=== PATIENT | male | born 1960 | race Caucasian/White ===

== ENCOUNTER 2018-10-09 00:34 | Inpatient (IN) | payer OTHER ==
[2018-10-09 01:23] LABS: Hemoglobin 14.3 g/dL (14.0-18.0); Mean Corpuscular HGB CONC 33.7 g/dL (32.0-36.0); Mean Corpuscular Hemoglobin 29.3 pg (27.0-31.0); Mean Platelet Volume 7.7 fL (7.4-10.4); Platelet Count 258 thou/uL (130-400); RBC Distribution Width 12.9 % (11.5-14.5); Red Blood Cell (RBC) Count 4.88 mill/uL (4.70-6.10); White Blood Cell (WBC) Count 15.2 thou/uL (4.8-10.8)
[2018-10-09 01:51] LABS: ALT (SGPT) 39 U/L (8-55); AST (SGOT) 41 U/L (5-34); Albumin 3.4 g/dL (3.5-5.0); Alkaline Phosphatase 122 U/L (40-150); Anion Gap 17 mmol/L (10-20); BUN (Urea Nitrogen) 25 mg/dL (8.4-25.7); Bilirubin, Total 0.5 mg/dL (0.2-1.2); Calc. Creatinine Clearance 0 mL/min (70-130); Calcium 9.4 mg/dL (7.8-10.44); Carbon Dioxide 23 mmol/L (22-29); Chloride 97 mmol/L (98-107); Estimated GFR-MDRD 53; Globulin 2.5 g/dL (2.4-3.5); Glucose 409 mg/dL (70-105); Potassium 3.2 mmol/L (3.5-5.1); Protein, Total 5.9 g/dL (6.0-8.3); Sodium 134 mmol/L (136-145)
[2018-10-09] MEDS ORDERED: Piperacillin/Tazobactam 4.5 GM in Sodium Chloride 0.9% 100 ML IVPB SCH (02:00)
[2018-10-09 02:10] LABS: Band 28 % (5-11); Lymphocytes 6 % (21-51); MDiff Complete? YES; Monocytes 3 % (0-10); Neutrophil 62 % (42-75)
[2018-10-09] MEDS ORDERED: Piperacillin/Tazobactam 2.25 GM VIAL ONE (02:30)
[2018-10-09] MEDS ORDERED: Piperacillin/Tazobactam 4.5 GM VIAL ONE (02:30)
[2018-10-09] MEDS ORDERED: Acetaminophen 325 MG TAB PO PRN (02:36)
[2018-10-09] MEDS ORDERED: Acetaminophen 650 MG Suppository PR PRN (02:36)
[2018-10-09] MEDS ORDERED: Ondansetron PF 4 MG/2 ML Vial IVP PRN (02:36)
[2018-10-09] MEDS ORDERED: Potassium Chloride 40 MEQ in Sodium Chloride 0.9% 250 ML 250 ML IVPB SCH (03:00)
[2018-10-09] MEDS ORDERED: HumaLOG 300 UNITS/3 ML VIAL SC PRN (03:01)
[2018-10-09] MEDS ORDERED: Dextrose 50% Abboject 50 ML SYRINGE SLOW IVP PRN (03:01)
[2018-10-09] MEDS ORDERED: Dextrose 5% in Water 1,000 ML IV PRN (03:01)
[2018-10-09 05:31] LABS: Lactic Acid 5.8 mmol/L (0.5-2.2)
[2018-10-09 05:33] LABS: Anion Gap 17 mmol/L (10-20); BUN (Urea Nitrogen) 24 mg/dL (8.4-25.7); Calc. Creatinine Clearance 98 mL/min (70-130); Calcium 9.5 mg/dL (7.8-10.44); Carbon Dioxide 22 mmol/L (22-29); Chloride 96 mmol/L (98-107); Estimated GFR-MDRD 53; Glucose 332 mg/dL (70-105); Potassium 3.1 mmol/L (3.5-5.1); Sodium 132 mmol/L (136-145)
[2018-10-09 05:48] LABS: Band 44 % (5-11); Lymphocytes 3 % (21-51); MDiff Complete? YES; Mean Corpuscular HGB CONC 30.4 g/dL (32.0-36.0); Mean Corpuscular Volume 88.9 fL (78.0-98.0); Metamyelocyte 1 % (0-0); Monocytes 5 % (0-10); Neutrophil 47 % (42-75); Platelet Count 287 thou/uL (130-400); RBC Distribution Width 13.1 % (11.5-14.5); Red Blood Cell (RBC) Count 4.82 mill/uL (4.70-6.10); White Blood Cell (WBC) Count 15.3 thou/uL (4.8-10.8)
[2018-10-09] MEDS ORDERED: Sodium Chloride 0.9% 1,000 ML IV SCH (06:00)
[2018-10-09] MEDS ORDERED: methylPREDNISolone Sod Succ/PF 125 MG/2 ML VIAL IVP SCH ×2 (06:45→12:00)
[2018-10-09 06:47] LABS: Actual Bicarbonate (HCO3a) 19.7 mEq/L (22-28); O2 Tension (PaO2) 88.1 mmHg (> 80.0); pH, Arterial 7.41 (7.35-7.45)
[2018-10-09 06:48] LABS: Calcium, Ionized 1.14 mmol/L (1.12-1.30); Carboxyhemoglobin (COHb) 0.8 gm% (0.0-3.0); Hemoglobin (Hb) 13.1 g/dL (14.0-18.0); Potassium - ABG Lab 3.63 mmol/L (3.70-5.30)
[2018-10-09 06:49] LABS: Puncture Site RRA
--- NOTE | 2018-10-09 07:03 | CT ---
CTA CHEST WITH 3D VOLUME RENDERING WITH CONTRAST: CLINICAL HISTORY: New onset pain and fever. FINDINGS: There is no large, central pulmonary embolus identified within the pulmonary tract or main pulmonary arteries. Segmental and subsegmental branches are limited in assessment by heterogeneity of contrast bolus within the branches at these levels. There is no consolidation, effusion, or discrete pneumot horax. Thoracic aorta is nonaneurysmal. Coronary artery calcium is seen. Eventration of the ventra l abdominal wall is visualized at the upper abdomen. Diffuse osseous degenerative change is present. There is elevation of the right hemidiaphragm. IMPRESSION: No large, acute, central pulmonary embolus. POS: KRANTHIK
--- NOTE | 2018-10-09 07:52 | RAD ---
XR Knee Rt 2 View HISTORY: Right knee pain FINDINGS: No fracture or dislocation is identified. There are postoperative changes of total knee arthroplasty in good position and alignment. No periprosthetic lucency is seen to suggest loosening. A joint effusion is present.
--- NOTE | 2018-10-09 08:27 | HP ---
PRIMARY CARE PHYSICIAN: Not reported. CODE STATUS: Full code. TIME OF EVALUATION: 2:30 a.m. CHIEF COMPLAINT: Right knee pain. HISTORY OF PRESENT ILLNESS: This is a 58-year-old male patient, with past medical history of bilateral knee replacement, came to the hospital after having fever, pain on the right knee with significant swelling in the right lower extremity, with no clear triggers, no falls, not even related to any swelling, no alleviating factors. The symptoms are reported as severe. The patient is unable to bear weight due to pain. for consultation for medical management. REVIEW OF SYSTEMS: CONSTITUTIONAL: The patient has fever, chills, generalized weakness. RESPIRATORY: The patient is hypoxic with tachypnea. Scant sputum production. CARDIOVASCULAR: No chest pain or palpitations. GASTROINTESTINAL: No nausea, no vomiting, diarrhea, or abdominal pain. AUTO PORTER: No dizziness, headache, or feeling lightheaded. GENITOURINARY: No burning on urination. EXTREMITIES: The patient has bilateral knee replaced and the right knee is significantly swollen and difficulty bearing weight on bilaterally knees. All other systems were reviewed and negative except for the findings mentioned above. PAST MEDICAL HISTORY: The patient has a history of COPD, hypertension, and high cholesterol. FAMILY HISTORY: Reviewed and non contributory to current presentation PAST SURGICAL HISTORY: in the lower back, bilateral knee replacement. PAST PSYCHIATRIC HISTORY: No psych history. SOCIAL HISTORY: No alcohol. No drugs. The patient chews tobacco on a daily basis. KNOWN ALLERGIES: No known drug allergies. REPORTED MEDICATIONS: 1. Lyrica. 2. . 3. Fenofibrate. 4. Metformin. 5. . PHYSICAL EXAMINATION: VITAL SIGNS: On presentation, blood pressure 164/103 with heart rate 92, respiratory rate was 26, temperature 97.4. Pain was 6/10. Oxygen saturation was 97. GENERAL APPEARANCE: The patient is alert, oriented, in mild respiratory distress. HEENT: Eyes, normal conjunctivae. Moist oral mucosa. Anicteric. No JVD. RESPIRATORY: Bilateral air entry. No rales. The patient has bilateral wheezing. Symmetric expansion. CARDIOVASCULAR: Normal rate and regular rhythm. No murmurs. No gallop. No edema. ABDOMEN: Soft. Normal bowel sounds. MUSCULOSKELETAL: Baseline range of motion and strength except for bilateral knees, which he is unable to bear weight and the right knee is significantly swollen and tender. Peripheral pulses are present. Capillary refill seems to be intact. The patient has left second toe swollen, tender, red. NEUROLOGICAL: No evidence of any new focal weakness. Cranial nerves seems to be intact. PSYCHIATRIC: The patient is in good mood. No anxiety. Optimal judgment. IMAGING STUDIES: EKG was reviewed. The patient has sinus tachycardia with some PVCs, ventricular rate 101, W[place] , QRS 86, QT corrected 433. LABORATORY DATA: Reviewed. The patient has white count 15.2, hemoglobin 14.3, MCV 87, platelet count 258, bands 28. Chemistry; sodium 134, potassium 3.2, chloride 97, creatinine 1.37. We do not have any previous records to compare. Calcium 9.4. Total bilirubin 0.5. LFTs were negative. Toxicology, beta-hydroxybutyrate 0.59. D-dimer was positive, more than 500. Urine was negative. Sedimentation rate 55 , glucose . X-ray of the right knee was done. The patient has no acute osseus abnormalities or joint effusion. ASSESSMENT AND PLAN: The patient will be placed in the hospital with following medical problems; 1. Possible right knee septic joint, the patient has fever, right knee swelling. There is no effusion seen on the x-ray. Orthopedics have been consulted, they are admitting the patient. They will be treating this problem. From our part, we recommend broad-spectrum antibiotics, and to adjust it as per sensitivity and the cultures. 2. Sepsis. The patient has white count. The patient has fever. The patient has tachypnea, likely source is the right knee septic effusion; however, the patient has left second toe diabetic-like infection that needs to be addressed and could be the possible source for the sepsis too. 3. The patient presented with acute hypoxia. No respiratory distress, the patient has significant swelling of the right lower extremity. D-dimer is elevated. PE remains as a possibility. We will rule it out since it could be life- threatening. We have ordered a CT angio. We will follow recommendations. We will treat accordingly. 4. Possible chronic obstructive pulmonary disease exacerbation. The patient also has history of chronic obstructive pulmonary disease to be the reason why he had presented with some respiratory distress. We will place the patient on DuoNebs , he is already on antibiotics, and we will give if the patient does not have we do not find any other reason why the patient is in respiratory distress other than the chronic obstructive pulmonary disease. 5. Lactic acidosis. Lactate 4.2. This could be secondary to sepsis. We will treat underlying condition. 6. Uncontrolled diabetes. The patient has blood sugar 409 with normal anion gap and normal CO2. No beta-hydroxybutyrate. We will place the patient on sliding scale. This could be just worsened by sepsis. 7. Hyponatremia, sodium 134. This could be hypertonic hyponatremia secondary to hyperglycemia. We will treat underlying condition. 8. Hypokalemia. We will replace electrolytes as needed. Job ID: [id number] MTDD
[2018-10-09] MEDS: HYDROcodone/Acetaminophen 7.5/325 mg Tablet PO PRN ×2 (08:55→20:47)
[2018-10-09] MEDS: Piperacillin/Tazobactam 4.5 GM in Sodium Chloride 0.9% 100 ML IVPB SCH ×2 (08:55→17:47)
[2018-10-09] MEDS ORDERED: ISOVUE-370 76%-LOCM 1 ML ONE (09:01)
[2018-10-09 09:12] LABS: BF Color Gray; Body Fluid Source Synovial Fluid; Clarity Cloudy/Turbid (Clear); RBC Background Count 0.004; RBC Count-Automated 548000 /cumm; Tube # EDTA; WBC/NonHematic-Auto 388000 /cumm
--- NOTE | 2018-10-09 09:13 | RAD ---
RADIOGRAPH LEFT FOOT THREE VIEWS: Date: 10-09-18 History: 58-year-old male with infected left second toe. Evaluate for osteomyelitis. Comparison: None. FINDINGS: There is soft tissue swelling of the distal portion of the second toe. There is an approximately 3 x 7 mm osseous defect at the second distal tuft. The rest of the foot is intact. There is an os navicul are. IMPRESSION: Evidence for osteomyelitis of the distal tuft of the left second toe. POS: Delta
[2018-10-09] MEDS: Enoxaparin Sodium 40 MG/0.4 ML SYRINGE SC SCH (09:51)
[2018-10-09 11:20] LABS: BF Segmented Neutrophils 26 %; Cell Count Non Hematic 61 %; Lymphocytes 13 %
[2018-10-09] MEDS ORDERED: PROPOFOL 200 MG/20 ML VIAL ONE (11:41)
[2018-10-09] MEDS ORDERED: Lidocaine 1% PF 5 ML VIAL ONE (11:41)
[2018-10-09] MEDS ORDERED: Rocuronium Bromide 10 MG/ML (10ML VIAL) ONE (11:41)
[2018-10-09] MEDS ORDERED: Succinylcholine Chloride 20 MG/ML 10 ml SYRINGE FS ONE (11:41)
[2018-10-09] MEDS ORDERED: Ondansetron PF 4 MG/2 ML Vial ONE (11:41)
[2018-10-09] MEDS ORDERED: PHENYLEPHRINE-NS 100 MCG/ML 10 ML SYRINGE ONE (11:41)
[2018-10-09] MEDS ORDERED: Insulin Regular 300 UNITS/3 ML VIAL ONE (12:09)
--- NOTE | 2018-10-09 12:14 | HP ---
CHIEF COMPLAINT: Right knee pain. HISTORY OF PRESENT ILLNESS: Mr. Saez is a 58-year-old male, who presented to the emergency department with sepsis. He has been having 3 days of fevers and chills and feeling malaise. He has not been able to eat or drink. He has had increasing right knee pain over the last 3-5 days. He developed a large effusion of the right knee. He has developed inability to ambulate. Of note, he has had a chronic infection in his left 2nd toe. He reports over the last several weeks this has worsened as well. He has had a chronic ulcer. He has poorly controlled diabetes. The patient has had bilateral total knee arthroplasty approximately 4 years ago. Up until this week he has had no problems with his knees. No history of infection around the time of his knee replacement surgery. PAST MEDICAL HISTORY: Includes diabetes, obesity, hypertension, and hypercholesterolemia. PAST SURGICAL HISTORY: Bilateral total knee arthroplasties as well as lumbar back surgery. SOCIAL HISTORY: No alcohol or drug use. The patient does use tobacco daily. ALLERGIES: NO KNOWN DRUG ALLERGIES. REVIEW OF SYSTEMS: Positive for fevers and chills, generalized malaise and right knee pain. Otherwise, negative 10-point review of systems. IMAGING: X-rays of the right knee demonstrate a large effusion. Total knee arthroplasty is intact without loosening or complication. The patient's left foot x-rays demonstrate osteomyelitis of the distal phalanx of the 2nd toe. PHYSICAL EXAMINATION: VITAL SIGNS: Temperature is 99.7, pulse is 107, respiratory rate 26, oxygen saturation 99%, blood pressure is 128/76. GENERAL: He is sitting with head of bed elevated. No apparent distress. Breathing comfortably. ABDOMEN: Soft, nontender, nondistended. HEENT: Normocephalic, atraumatic. MUSCULOSKELETAL: The patient's right knee has a large effusion. He has a small arc of motion of 30 degrees. He has pain with this. He has increased warmth. Left knee has a well-healed wound. There is no effusion. The patient's left foot 2nd toe has an ulceration with an enlarged appearance of the 2nd toe consistent with osteomyelitis. He has a small ulceration of the 1st toe on the plantar surface as well. IMPRESSION: A 58-year-old diabetic male with left 2nd toe infection including osteomyelitis, now with a septic right total knee arthroplasty, likely from hematogenous seeding. PLAN: At this point, the patient will need to go to the operating room. He will need irrigation and debridement of his right total knee arthroplasty. He will need polyethylene exchange. He will need amputation of the distal aspect of the 2nd toe as well. He will need long-term antibiotics. He will likely need at least 6 weeks. He will continue critical care for now. He will continue aggressive management of his poorly controlled diabetes. Job ID: [id number]
[2018-10-09] MEDS ORDERED: Fentanyl 100 MCG/2 ML VIAL ONE ×3 (12:36→15:56)
[2018-10-09] MEDS ORDERED: Promethazine HCl 25 MG/ML VIAL IM PRN (13:46)
[2018-10-09] MEDS ORDERED: Promethazine HCl 25 MG/ML VIAL SLOW IVP PRN (13:46)
[2018-10-09] MEDS ORDERED: Ondansetron HCl/PF 4 MG/2 ML Vial IVP PRN (13:46)
[2018-10-09] MEDS ORDERED: Morphine 10 MG/ML VIAL ONE (13:55)
[2018-10-09] MEDS ORDERED: Vancomycin HCl 750 MG in Sodium Chloride 0.9% 250 ML 250 ML IVPB SCH (16:00)
[2018-10-09] MEDS: Sodium Chloride 0.9% 1,000 ML IV SCH ×2 (16:08→16:29)
[2018-10-09] MEDS: Vancomycin HCl 1.75 GM in Sodium Chloride 0.9% 500 ML IVPB SCH (16:48)
[2018-10-09] MEDS ORDERED: Insulin Glargine 10 UNITS in Pre-Filled Syringe SC SCH (17:15)
[2018-10-09] MEDS ORDERED: Budesonide 0.5 MG/2 ML NEB INH SCH (18:30)
[2018-10-09] MEDS ORDERED: hydrALAZINE 20 MG/ML VIAL SLOW IVP PRN (18:42)
[2018-10-09] MEDS ORDERED: Potassium Chloride 20 MEQ TAB PO SCH (18:45)
--- NOTE | 2018-10-09 19:04 | PRG ---
DATE OF SERVICE: 10/09/2018 SUBJECTIVE: The patient denies any new complaints at this time. Shortness of breath has significantly improved. He has some pain in the right knee postop. No fever or chills reported. He denies any chest pain or shortness of breath. OBJECTIVE: VITAL SIGNS: The patient is afebrile, pulse rate of 92, blood pressure 145/85 with respirations of 20, O2 saturation 96% on 2 L nasal cannula. GENERAL: A 58-year-old male, in no apparent distress. HEENT: Head, atraumatic and normocephalic. Sclerae anicteric. NECK: Supple. No JVD. LUNGS: Clear to auscultation bilaterally. No wheezing, rales, or rhonchi. HEART: S1 and S2 present. Regular rate and rhythm. No rubs or gallops. ABDOMEN: Soft. Bowel sounds present. Obese. EXTREMITIES: No edema or calf tenderness. Dressing over the left foot and the right knee noted. CARDIOVASCULAR STUDIES: Telemetry monitoring by my review showed sinus rhythm. LABORATORY FINDINGS: WBC 15.3, hemoglobin 13, hematocrit 42.8, and platelets 287. ABGs this morning showed pH 7.41 with pCO2 of 32, pO2 of 88.1 with O2 saturation of 97%. Lactic acid 5.8. Sodium 132, potassium 3.1, chloride 98, and creatinine 1.36. Synovial fluid showed wbc of 388,000 with 26% neutrophil with bacteria, ketones 0.59. Knee aspirate preliminary culture showed many gram-positive cocci in pairs and chains. IMAGING DATA: X-ray of the right knee by my review showed postoperative changes without any fracture. X-ray of the left foot showed osteomyelitis of the distal tuft of the left 2nd toe. CT angiogram of the chest was negative for pulmonary embolism. IMPRESSION: 1. Sepsis with acute organ dysfunction secondary to septic arthritis involving the right knee along with left 2nd toe osteomyelitis. 2. Uncontrolled diabetes mellitus, type 2. 3. Acute hypoxic respiratory failure. 4. Obstructive sleep apnea, on CPAP. 5. Lactic acidosis secondary to sepsis. 6. Hyponatremia. 7. Hypokalemia. 8. Chronic kidney disease, stage 3. 9. Obesity with a BMI of 36.8. 10. Depression, mild, stable. 11. Hypertension. 12. Diabetic neuropathy. 13. Chronic pain syndrome. PLAN: The patient underwent left 2nd toe amputation along with surgery for right knee. Operative report is pending at this time. We will start him on long-acting insulin. Continue vancomycin and Zosyn for now. Change insulin to moderate scale. We will discontinue IV Solu-Medrol. Pain control. We will restart selected home medications. Recheck labs in a.m. IV normal saline at 125 mL an hour. Replace potassium. Plan of care was discussed with the patient and his family in detail. They stated understanding. Job ID: [id number]
[2018-10-09] MEDS: HumaLOG 300 UNITS/3 ML VIAL SC PRN (20:32)
[2018-10-10] MEDS ORDERED: rOPINIRole HCl 0.25 MG TAB PO SCH (01:00)
[2018-10-10] MEDS: Piperacillin/Tazobactam 4.5 GM in Sodium Chloride 0.9% 100 ML IVPB SCH ×2 (01:22→09:44)
[2018-10-10] MEDS: HumaLOG 300 UNITS/3 ML VIAL SC PRN ×5 (01:33→20:53)
--- NOTE | 2018-10-10 01:53 | CON ---
DATE OF CONSULTATION: 10/09/2018 HISTORY OF PRESENT ILLNESS: Dominic Saez is a 58-year-old male who was found to have an infected right knee. He is going to the operating room for washout. I was consulted because of his presence in intermediate care unit. He is examined in the recovery room. He is still somnolent, but easily arousable. PAST MEDICAL HISTORY: Remarkable for, 1. Diabetes. 2. Hypertension. 3. Lipid disorder. 4. History of bilateral total knees. 5. History of lumbar spine surgery. SOCIAL HISTORY: He is a smoker. Nondrinker. ALLERGIES: HE HAS NO DRUG ALLERGIES. FAMILY HISTORY: Negative for lung disease in early age. REVIEW OF SYSTEMS: A 10-point review of systems otherwise negative with the exception of discomfort in his knee prior to the surgery. PHYSICAL EXAMINATION: GENERAL: In the recovery room, he is in no distress. VITAL SIGNS: Blood pressure 140/80, heart rate is 90, respiratory rate is 18. He is in no distress. Oximetry is 96%. HEENT: Pupils are equal. Sclerae are anicteric. NECK: Supple. No lymphadenopathy. LUNGS: Clear. HEART: Regular rhythm, S1 and S2 normal. ABDOMEN: Soft and nontender. EXTREMITIES: With a bandage on his right knee and over his left foot. LABORATORY DATA: White count 15.3, hemoglobin 13.0, platelets 287. Sodium 132, potassium 3.1, chloride 96, bicarb 22, BUN 24, creatinine 1.36. Gram stain of knee aspirate showing gram-positive cocci in pairs and chains. IMPRESSION: 1. Septic knee, status post operative washout. 2. History of sleep apnea he says, I have asked the nurse to try to contact family if they could bring up his CPAP for sleep in [facility]. 3. History of diabetes. 4. Acute on chronic kidney disease. We will be happy to follow the other physicians following him. TIME SPENT: This is a 50-minute consult, 50% of the time was spent on the unit coordinating care. Job ID: [id number] MTDD
[2018-10-10] MEDS: Sodium Chloride 0.9% 1,000 ML IV SCH ×3 (02:37→21:04)
[2018-10-10] MEDS ORDERED: Vancomycin HCl 1.75 GM in Sodium Chloride 0.9% 500 ML IVPB SCH (04:00)
[2018-10-10] MEDS: Vancomycin HCl 1.75 GM in Sodium Chloride 0.9% 500 ML IVPB SCH (04:35)
[2018-10-10 05:32] LABS: ALT (SGPT) 26 U/L (8-55); AST (SGOT) 24 U/L (5-34); Alkaline Phosphatase 101 U/L (40-150); Anion Gap 17 mmol/L (10-20); BUN (Urea Nitrogen) 26 mg/dL (8.4-25.7); Bilirubin, Total 0.2 mg/dL (0.2-1.2); Calc. Creatinine Clearance 115 mL/min (70-130); Calcium 8.8 mg/dL (7.8-10.44); Carbon Dioxide 18 mmol/L (22-29); Chloride 98 mmol/L (98-107); Estimated GFR-MDRD 63; Globulin 3.3 g/dL (2.4-3.5); Glucose 449 mg/dL (70-105); Magnesium 2.1 mg/dL (1.6-2.6); Potassium 4.2 mmol/L (3.5-5.1); Protein, Total 6.3 g/dL (6.0-8.3); Sodium 129 mmol/L (136-145)
[2018-10-10 06:47] LABS: Hemoglobin 11.2 g/dL (14.0-18.0); Mean Corpuscular HGB CONC 30.5 g/dL (32.0-36.0); Mean Corpuscular Hemoglobin 27.3 pg (27.0-31.0); Mean Corpuscular Volume 89.5 fL (78.0-98.0); Mean Platelet Volume 7.9 fL (7.4-10.4); Platelet Count 302 thou/uL (130-400); RBC Distribution Width 13.5 % (11.5-14.5); White Blood Cell (WBC) Count 19.9 thou/uL (4.8-10.8)
[2018-10-10 06:54] LABS: Band 18 % (5-11); Lymphocytes 7 % (21-51); MDiff Complete? YES; Monocytes 5 % (0-10); Neutrophil 70 % (42-75)
[2018-10-10] MEDS ORDERED: Insulin Glargine 10 UNITS in Pre-Filled Syringe SC SCH (09:00)
[2018-10-10] MEDS: DULoxetine 60 MG CAP PO SCH (09:38)
[2018-10-10] MEDS: Saccharomyces boulardii 250 MG CAP PO SCH (09:42)
[2018-10-10] MEDS: Enoxaparin Sodium 40 MG/0.4 ML SYRINGE SC SCH (09:42)
[2018-10-10] MEDS: Insulin Glargine 20 UNITS in Pre-Filled Syringe 1 EACH SC SCH ×2 (09:42→20:45)
[2018-10-10] MEDS: Fentanyl 100 MCG/2 ML VIAL SLOW IVP PRN ×5 (09:45→22:05)
[2018-10-10] MEDS: HYDROcodone/Acetaminophen 7.5/325 mg Tablet PO PRN (13:46)
[2018-10-10] MEDS: CEFAZOLIN 2 GM in Premix Bag 1 BAG IVPB SCH ×2 (13:47→21:03)
--- NOTE | 2018-10-10 15:20 | PRG ---
DATE OF SERVICE: 10/10/2018 SUBJECTIVE: Mr. Saez says he feels better than he felt yesterday. He slept on the hospital BiPAP since he did not have anybody to bring him his BiPAP or CPAP. OBJECTIVE: VITAL SIGNS: Heart rate is 85, blood pressure 141/85, respiratory rate is 22. LUNGS: Clear. HEART: Regular rhythm. ABDOMEN: Soft. EXTREMITIES: The left foot and right knee are bandaged. LABORATORY DATA: White count 19.9, hemoglobin 11.2, platelets 302,000. Sodium 129, potassium 4.2, chloride 98, bicarb 18, BUN 26, creatinine 1.19, glucose 449. IMPRESSION: 1. Septic knee. 2. Peripheral vascular disease. 3. Diabetes, poorly controlled. 4. Obesity. Overall, he appears to clinically be improving. He is stable to move out of the intermediate care unit in my opinion. Job ID: [id number]
[2018-10-10 16:00] LABS: Vancomycin, Trough 13.5 ug/mL
--- NOTE | 2018-10-10 20:52 | OP ---
DATE OF PROCEDURE: 10/09/2018 PREOPERATIVE DIAGNOSES: 1. Infected right total knee arthroplasty. 2. Diabetic infection, left second toe. POSTOPERATIVE DIAGNOSES: 1. Infected right total knee arthroplasty. 2. Diabetic infection, left second toe. PROCEDURES PERFORMED: 1. Revision of right total knee arthroplasty with poly exchange. 2. Irrigation and debridement of right total knee arthroplasty. 3. Amputation of left second toe at metatarsophalangeal joint. ANESTHESIA: General. HOGSHEAD FILLER: Coretta. TOURNIQUET TIME: 57 minutes at 300 mmHg on the right leg. SPECIMEN EXPLANTED: Poly discarded, amputated left toe also discarded. DRAINS: Hemovac x1. IMPLANTS: The DePuy rotating platform polyethylene 5 x 12.5 mm. OUTCOME: Satisfactory irrigation and debridement of infected total knee. INDICATIONS FOR PROCEDURE: The patient is a 58-year-old gentleman with diabetes and is now a few years out from a total knee arthroplasty. He presents with a 5-day history of increasing left knee pain and decreasing motion in this left knee as well as an infected left second toe with necrotic skin to the level of the middle phalanx. After aspiration of the knee which showed purulent material, the patient now scheduled for irrigation and debridement of this right total knee, as well as polyethylene exchange, as well as amputation of the left second toe. Informed consent has been obtained, I believe all questions answered. DESCRIPTION OF PROCEDURE: The patient was brought to the operating room and a time-out performed followed by induction of general anesthesia. Next, the patient was placed supine on the OR table and a sterile prep and drape was performed of the right lower extremity. The limb was elevated and then tourniquet inflated to 300 mmHg. Following the scar from the previous total knee arthroplasty, the anterior skin was incised, and dissection was carried down sharply to the underlying quadriceps mechanism. Next, a medial parapatellar arthrotomy was performed extending up into the quadriceps tendon and distally along the medial border of the patellar tendon. At this point, purulent material was found within the knee. This was evacuated from the knee. Next, the patella was inverted and then a synovectomy was performed from the suprapatellar pouch, medial and lateral gutters as well as around the patella. Once all visible synovial tissue had been sharply excised, the polyethylene liner was removed. Upon removal of this, the knee was irrigated with 5 L of normal saline with antibiotic irrigant added. This included the posterior aspect of the knee, which was curetted to remove any loose debris. Once completed, no further purulent material was encountered. A new polyethylene insert was then placed. At this point, some vancomycin powder, 1 g was placed within the knee along with some saline to make it soluble. At the completion of this, a Hemovac drain was placed in the knee and then the knee was closed in layers with #2 Vicryl for the quadriceps mechanism, 2-0 Vicryl subcutaneously and donya for the skin. A Xeroform gauze and Rome wrap dressing were then applied to the knee. The tourniquet was let down at the completion of dressing. Next, a sterile prep and drape was performed in the left lower extremity. The second toe was inspected and found to have infection extending all the way to the mid phalanx level. As such, a fishmouth type incision was made distal to the metatarsophalangeal joint after skin was sharply incised, dissection was carried down with electrocautery. There was found to be minimal bleeding from this surgery, consistent with his diabetic vascular disease. The toe was then amputated at the metatarsophalangeal joint. Electrocautery was used to gain hemostasis and then this wound was loosely reapproximated with combination of 2-0 Vicryl and nylon. A Xeroform gauze, bulky gauze, and Rome wrap dressing were then applied to the foot. At the completion of this, the patient was then transferred to recovery room in stable condition. There were no complications. He tolerated the procedure well. Job ID: [id number]
[2018-10-10] MEDS: Rifampin 300 MG CAP PO SCH (21:02)
--- NOTE | 2018-10-10 22:27 | PDOC.PN ---
- Subjective Encounter Start Date: 10/10/18 Encounter Start Time: 14:30 Patient seen and examined for Sepsis. Feels better. Was on CPAP last night. Pain controlled. No new complaints. No overnight events - Objective Resuscitation Status - Order Detail: 10/09/18 02:36 Resuscitation Status Routine Resuscitation Status: FULL: Full Resuscitation MAR Reviewed: Yes Vital Signs & Weight: Vital Signs (12 hours) Temp Pulse Resp Pulse Ox 10/10/18 22:12 86 14 98 10/10/18 20:00 100 10/10/18 19:53 98.8 F 10/10/18 18:34 86 13 10/10/18 15:22 98.2 F 10/10/18 15:20 85 19 10/10/18 11:24 97.0 F L 10/10/18 10:54 82 18 98 Weight Admit Weight 264 lb 3.2 oz Weight 270 lb 1.6 oz Most Recent Monitor Data Heart Rate from ECG 88 NIBP 130/70 NIBP BP-Mean 90 Respiration from ECG 21 SpO2 97 I&O: 10/09/18 10/10/18 10/11/18 06:59 06:59 06:59 Intake Total 6660 3350 Output Total 3650 1200 Balance 3010 2150 Result Diagrams: 10/10/18 04:29 10/10/18 04:29 Additional Labs: Accuchecks 10/10/18 10/10/18 10/10/18 20:52 17:17 10:40 POC Glucose 311 H 341 H 412 H 10/10/18 10/09/18 06:00 23:31 POC Glucose 422 H 442 H EKG Reviewed by me: Yes (Tele SR) Phys Exam - Physical Examination Constitutional: NAD Respiratory: no wheezing, no rales, no rhonchi Symmetrical Cardiovascular: RRR, no rub no heaves/pulsations Gastrointestinal: soft, non-tender, no distention, positive bowel sounds Musculoskeletal: no edema Neurological: non-focal, normal sensation, moves all 4 limbs Psychiatric: normal affect, A&O x 3 Dx/Plan - Plan DVT proph w/SCDs IMPRESSION: 1. Sepsis with acute organ dysfunction secondary to Rt knee septic arthritis/ left 2nd toe osteomyelitis. 2. Uncontrolled diabetes mellitus, type 2. A1c 13 3. Acute hypoxic respiratory failure. 4. Obstructive sleep apnea, on CPAP. 5. Lactic acidosis secondary to sepsis. 6. Hyponatremia. 7. Hypokalemia. 8. Chronic kidney disease, stage 3. 9. Obesity with a BMI of 36.8. 10. Depression, mild, stable. 11. Hypertension. 12. Diabetic neuropathy. 13. Chronic pain syndrome. PLAN: Cont Ancef/Rifampin Increase Lantus to 20 units BID Change sliding scale to aggressive Insulin self adm teaching AM labs Repeat Lactic acid in AM Cont CPAP HS Cont other meds as below Review of Systems - Review of Systems Respiratory: negative: Cough, Dry, Shortness of Breath, Hemoptysis, SOB with Excertion, Pleuritic Pain, Sputum, Wheezing Cardiovascular: negative: chest pain, palpitations, orthopnea, paroxysmal nocturnal dyspnea, edema, light headedness, other Gastrointestinal: negative: Nausea, Vomiting, Abdominal Pain, Diarrhea, Constipation, Melena, Hematochezia, Other - Medications/Allergies Allergies/Adverse Reactions: Allergies Allergy/AdvReac Type Severity Reaction Status Date / Time No Known Allergies Allergy Verified 10/09/18 03:51 Medications: Current Medications Acetaminophen (Tylenol) 650 mg PO Q4H PRN PRN Reason: Headache/Fever/Mild Pain (1-3) Last Admin: 10/10/18 21:18 Dose: 650 mg Acetaminophen (Tylenol) 650 mg [place] Q4H PRN PRN Reason: Headache/Fever/Mild Pain (1-3) Hydrocodone Bitart/Acetaminophen ([place] 7.5/325) 1 tab PO Q4H PRN PRN Reason: Mild Pain (1-3) Last Admin: 10/10/18 13:46 Dose: 1 tab Albuterol/Ipratropium (Duoneb) 3 ml NEB [id number] Last Admin: 10/10/18 22:12 Dose: 3 ml Albuterol/Ipratropium (Duoneb) 3 ml NEB Q2H PRN PRN Reason: SOB &/or Wheezing Clonidine (Catapres) 0.1 mg PO Q4H PRN PRN Reason: SBP Greater Than 180 Dextrose/Water (Dextrose 50%) 25 gm SLOW IVP PRN PRN PRN Reason: Hypoglycemia Duloxetine HCl (Cymbalta) 60 mg PO DAILY [facility] Last Admin: 10/10/18 09:38 Dose: 60 mg Enoxaparin Sodium (Lovenox) 40 mg SC 0900 [facility] Last Admin: 10/10/18 09:42 Dose: 40 mg Fentanyl (Sublimaze) 50 mcg SLOW IVP Q2H PRN PRN Reason: Pain Last Admin: 10/10/18 22:05 Dose: 50 mcg Glucagon (Glucagon) 1 mg IM PRN PRN PRN Reason: Hypoglycemia Hydralazine HCl (Apresoline) 10 mg SLOW IVP Q4H PRN PRN Reason: SBP Greater Than 180 Dextrose/Water (D5w) 1,000 mls @ 0 mls/hr IV .Q0M PRN PRN Reason: Hypoglycemia Sodium Chloride (Normal Saline 0.9%) 1,000 mls @ 125 mls/hr IV .Q8H [facility] Last Admin: 10/10/18 21:04 Dose: 1,000 mls Insulin Glargine 20 units/ (Miscellaneous Medication) 0.2 mls @ 0 mls/hr SC QAM [facility] Last Admin: 10/10/18 09:42 Dose: 0.2 mls Cefazolin Sodium/Dextrose 2 gm (/ Device) 50 mls @ 100 mls/hr IVPB Q8HR [facility] Last Admin: 10/10/18 21:03 Dose: 50 mls Insulin Glargine 20 units/ (Miscellaneous Medication) 0.2 mls @ 0 mls/hr SC HS [facility] Last Admin: 10/10/18 20:45 Dose: 0.2 mls Insulin Human Lispro (Humalog) 0 units SC .BEDTIME SLIDING SC PRN PRN Reason: Bedtime Correctional Scale Last Admin: 10/10/18 20:53 Dose: 4 unit Insulin Human Lispro (Humalog) 0 units SC .AGGRESSIVE SLIDING PRN PRN Reason: Aggressive Correctional Scale Last Admin: 10/10/18 17:30 Dose: 11 unit Miscellaneous Medication (Pharmacy To Dose) 1 each IVPB PRN PRN PRN Reason: SEPTIC ARTHRITIS Ondansetron HCl (Zofran Odt) 4 mg PO Q6H PRN PRN Reason: Nausea/Vomiting Ondansetron HCl (Zofran) 4 mg IVP Q6H PRN PRN Reason: Nausea/Vomiting Rifampin (Rifadin) 300 mg PO 1000,2200 [facility] Last Admin: 10/10/18 21:02 Dose: 300 mg Saccharomyces Boulardii (Florastor) 250 mg PO DAILY [facility] Last Admin: 10/10/18 09:42 Dose: 250 mg Sodium Chloride (Flush - Normal Saline) 10 ml IVF Q12HR [facility] Last Admin: 10/10/18 20:45 Dose: 10 ml Sodium Chloride (Flush - Normal Saline) 10 ml IVF PRN PRN PRN Reason: Saline Flush
[2018-10-10] MEDS ORDERED: Polyethylene Glycol 3350 17 GM Packet PO PRN (22:29)
--- NOTE | 2018-10-10 23:43 | CON ---
DATE OF CONSULTATION: 10/10/2018 REASON FOR CONSULTATION: Right TKR infection. HISTORY OF PRESENT ILLNESS: A 58-year-old with history of COPD, hypertension, hyperlipidemia, and bilateral knee replacement, developed chronic ulceration in left second toe and developed swelling of the right knee. Group B strep was identified in the right knee aspirate and the patient had a surgical intervention by Dr. Delaney. I do not have yet the operative report, so I do not know if the implant was removed or if was managed conservatively. The patient also had the second toe left foot amputated. Currently, he is awake, a little bit flushed, but he is oriented and follows commands. No visual symptoms, sore throat, odynophagia, dysphagia, or dyspnea. No chest pain. No cough or sputum production. No back pain. No abdominal pain or diarrhea. He is voiding in the urinal. 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 Chews tobacco. No smoking. ALLERGIES: NONE. FAMILY HISTORY: Noncontributory. CURRENT MEDICATIONS: 1. Tylenol. 2. [place]. 3. DuoNeb. 4. Cefazolin. 5. Clonidine. 6. Lovenox. 7. Glucagon. 8. Insulin. 9. Ondansetron. 10. Rifampin. PHYSICAL EXAMINATION: VITAL SIGNS: Temperature max 99.7, blood pressure is 130/70. SKIN: Shows the area of amputation of the second toe left foot, this area was sutured primarily. There is a little area of callus formation in the bottom of the first toe with hemorrhagic ulceration at the tip measuring about half a centimeter. The right knee is dressed and the dressing was not removed. He has a peripheral IV access and is urinating in the urinal. HEENT: Ocular movements conjugate. Sclerae white. Pupils are equal. Oral cavity with still quite a few teeth missing. Remainder ones with some decay and gum disease. NECK: Supple. No jugular venous distention or carotid bruits. LUNGS: Symmetric, clear breath sounds. HEART: S1 and S2, regular rate. ABDOMEN: Soft. Not distended or tender. No ascites. No bladder distention. EXTREMITIES: No other joint inflammatory activity noted outside the area of involvement. He is able to move extremities with limitations imposed by the right knee inflammatory process and procedure. Plantar responses are flexor. NEURO: He is awake, oriented, follows commands, pleasant. LABORATORY DATA: White cell count is up from 15,000 to 19,000, hemoglobin 11, platelets 302, 18% bands, which is down from admission. PH 7.41, pCO2 32, pO2 of 88. Sodium 129, creatinine 1.18. Liver profile normal. Albumin 3.0. Synovial fluid with 388,000 wbc's and predominance of neutrophils. Cultures from the synovial fluid with group B Streptococcus. Two sets of blood culture no growth thus far. Foot x-ray, osteomyelitis of distal tuft, left second toe and knee x-ray, no fracture dislocation. ASSESSMENT: 1. 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 2. Osteomyelitis, left second toe. 3. Infection of left knee arthroplasty site from group B strep. PLAN: We will wait for the final report. I do not know yet if the implant was removed or if he had a primary revision in one step with a functional spacer or he had a new joint in or just probably has a functional spacer in place. In that regard, we will switch him to cefazolin, rifampin, treat for 6 weeks and then further consolidation of therapy depending on the nature of the I and D that was done today. He will need a PICC line insertion. Disposition will depend on his insurance and other arrangements. Job ID: [id number]
[2018-10-11] MEDS: HYDROcodone/Acetaminophen 7.5/325 mg Tablet PO PRN ×3 (01:41→14:31)
[2018-10-11] MEDS: Fentanyl 100 MCG/2 ML VIAL SLOW IVP PRN ×5 (02:26→15:46)
[2018-10-11 05:00] LABS: Anion Gap 13 mmol/L (10-20); BUN (Urea Nitrogen) 21 mg/dL (8.4-25.7); Calc. Creatinine Clearance 184 mL/min (70-130); Calcium 8.8 mg/dL (7.8-10.44); Carbon Dioxide 20 mmol/L (22-29); Chloride 102 mmol/L (98-107); Estimated GFR-MDRD Greater than 90; Glucose 239 mg/dL (70-105); Potassium 3.4 mmol/L (3.5-5.1); Sodium 132 mmol/L (136-145)
[2018-10-11 05:17] LABS: Band 14 % (5-11); Eosinophils 2 % (0-10); Hemoglobin 10.9 g/dL (14.0-18.0); Lymphocytes 12 % (21-51); MDiff Complete? YES; Mean Corpuscular HGB CONC 31.5 g/dL (32.0-36.0); Mean Corpuscular Hemoglobin 27.9 pg (27.0-31.0); Mean Corpuscular Volume 88.5 fL (78.0-98.0); Mean Platelet Volume 7.7 fL (7.4-10.4); Metamyelocyte 1 % (0-0); Monocytes 2 % (0-10); Myelocyte 1 % (0-0); Neutrophil 67 % (42-75); Platelet Count 329 thou/uL (130-400); RBC Distribution Width 13.4 % (11.5-14.5); Reactive Lymphocytes 1 % (0-10); Red Blood Cell (RBC) Count 3.93 mill/uL (4.70-6.10); White Blood Cell (WBC) Count 19.2 thou/uL (4.8-10.8)
[2018-10-11] MEDS: CEFAZOLIN 2 GM in Premix Bag 1 BAG IVPB SCH ×3 (05:44→22:37)
[2018-10-11] MEDS: HumaLOG 300 UNITS/3 ML VIAL SC PRN ×3 (05:45→17:47)
[2018-10-11] MEDS: Enoxaparin Sodium 40 MG/0.4 ML SYRINGE SC SCH (08:03)
[2018-10-11] MEDS: DULoxetine 60 MG CAP PO SCH (08:03)
[2018-10-11] MEDS: Saccharomyces boulardii 250 MG CAP PO SCH (08:03)
[2018-10-11] MEDS: Senokot S 8.6-50 MG TAB PO SCH ×2 (08:04→20:14)
[2018-10-11] MEDS: Potassium Chloride 20 MEQ TAB PO SCH ×2 (08:04→17:46)
[2018-10-11] MEDS: Insulin Glargine 20 UNITS in Pre-Filled Syringe 1 EACH SC SCH ×2 (08:04→20:17)
[2018-10-11] MEDS: Sodium Chloride 0.9% 1,000 ML IV SCH ×3 (08:54→18:34)
[2018-10-11] MEDS: Rifampin 300 MG CAP PO SCH ×2 (11:06→22:36)
[2018-10-11] MEDS: Ondansetron ODT 4 MG TAB PO PRN (15:47)
[2018-10-11] MEDS ORDERED: Naloxone HCl 0.4 mg/ml Vial IV PRN (16:48)
[2018-10-11] MEDS ORDERED: Ondansetron PF 4 MG/2 ML Vial IVP PRN (16:48)
[2018-10-11] MEDS ORDERED: Promethazine HCl 25 MG/ML VIAL IM PRN (16:48)
[2018-10-11] MEDS ORDERED: diphenhydrAMINE 50 MG/ML VIAL IM PRN (16:48)
[2018-10-11] MEDS ORDERED: Zolpidem Tartrate 5 MG TAB PO PRN (16:48)
[2018-10-11] MEDS ORDERED: diphenhydrAMINE 50 MG/ML VIAL IVP PRN (16:48)
[2018-10-11] MEDS ORDERED: Communication Order-Pharmacy FS SCH (17:00)
[2018-10-11] MEDS: fentaNYL Citrate/PF 2,000 MCG in Sodium Chloride 0.9% 60 ML IV PRN (17:47)
--- NOTE | 2018-10-11 18:04 | PDOC.PN ---
- Subjective Encounter Start Date: 10/11/18 Encounter Start Time: 14:30 Patient seen and examined for Sepsis. Rt knee pain +. No fever/chills. No new complaints. No overnight events - Objective Resuscitation Status - Order Detail: 10/09/18 02:36 Resuscitation Status Routine Resuscitation Status: FULL: Full Resuscitation MAR Reviewed: Yes Vital Signs & Weight: Vital Signs (12 hours) Temp Pulse Resp Pulse Ox 10/11/18 15:30 97.8 F 10/11/18 14:40 87 25 H 98 10/11/18 11:31 97.2 F L 10/11/18 11:09 86 20 94 L 10/11/18 08:00 96 10/11/18 07:35 82 16 97 10/11/18 07:19 97.4 F L Weight Admit Weight 264 lb 3.2 oz Weight 278 lb Most Recent Monitor Data Heart Rate from ECG 90 NIBP 146/86 NIBP BP-Mean 106 Respiration from ECG 22 SpO2 96 I&O: 10/10/18 10/11/18 10/12/18 06:59 06:59 06:59 Intake Total 6660 5371 Output Total 3650 2825 275 Balance 3010 2546 -275 Result Diagrams: 10/11/18 04:01 10/11/18 04:01 Additional Labs: Accuchecks 10/11/18 10/11/18 10/11/18 16:37 10:57 05:41 POC Glucose 265 H 325 H 238 H 10/10/18 10/10/18 23:58 20:52 POC Glucose 285 H 311 H EKG Reviewed by me: Yes (Tele SR) Phys Exam - Physical Examination Constitutional: NAD Respiratory: no wheezing, no rhonchi Cardiovascular: RRR, no rub Gastrointestinal: soft, non-tender, positive bowel sounds Musculoskeletal: no edema Neurological: moves all 4 limbs Dx/Plan - Plan DVT proph w/lovenox, DVT proph w/SCDs IMPRESSION: 1. Sepsis with acute organ dysfunction secondary to Rt knee septic arthritis ( Strep)/left 2nd toe osteomyelitis s/p toe amputation 2. Uncontrolled diabetes mellitus, type 2. A1c - 13 3. Acute hypoxic respiratory failure - improved 4. Obstructive sleep apnea, on CPAP. 5. Lactic acidosis secondary to sepsis. 6. Hyponatremia. 7. Hypokalemia. 8. Chronic kidney disease, stage 3. 9. Obesity with a BMI of 36.8. 10. Depression, mild, stable. 11. Hypertension. 12. Diabetic neuropathy. 13. Chronic pain syndrome. PLAN: Cont Ancef/Rifampin per ID Cont current dose of Lantus with sliding scale Replace Potassium AM labs Cont CPAP HS Dec IVF rate Cont other meds as below Review of Systems - Review of Systems Respiratory: negative: Cough, Dry, Shortness of Breath, Hemoptysis, SOB with Excertion, Pleuritic Pain, Sputum, Wheezing Cardiovascular: negative: chest pain, palpitations, orthopnea, paroxysmal nocturnal dyspnea, edema, light headedness, other - Medications/Allergies Allergies/Adverse Reactions: Allergies Allergy/AdvReac Type Severity Reaction Status Date / Time No Known Allergies Allergy Verified 10/09/18 03:51 Medications: Current Medications Acetaminophen (Tylenol) 650 mg PO Q4H PRN PRN Reason: Headache/Fever/Mild Pain (1-3) Last Admin: 10/10/18 21:18 Dose: 650 mg Acetaminophen (Tylenol) 650 mg [place] Q4H PRN PRN Reason: Headache/Fever/Mild Pain (1-3) Albuterol/Ipratropium (Duoneb) 3 ml NEB [id number] [facility] Last Admin: 10/11/18 14:40 Dose: 3 ml Albuterol/Ipratropium (Duoneb) 3 ml NEB Q2H PRN PRN Reason: SOB &/or Wheezing Clonidine (Catapres) 0.1 mg PO Q4H PRN PRN Reason: SBP Greater Than 180 Dextrose/Water (Dextrose 50%) 25 gm SLOW IVP PRN PRN PRN Reason: Hypoglycemia Diphenhydramine HCl (Benadryl) 25 mg IVP Q3H PRN PRN Reason: Itching Diphenhydramine HCl (Benadryl) 25 mg PO Q3H PRN PRN Reason: Itching Diphenhydramine HCl (Benadryl) 25 mg IM Q3H PRN PRN Reason: Itching Duloxetine HCl (Cymbalta) 60 mg PO DAILY [facility] Last Admin: 10/11/18 08:03 Dose: 60 mg Enoxaparin Sodium (Lovenox) 40 mg SC 0900 [facility] Last Admin: 10/11/18 08:03 Dose: 40 mg Glucagon (Glucagon) 1 mg IM PRN PRN PRN Reason: Hypoglycemia Hydralazine HCl (Apresoline) 10 mg SLOW IVP Q4H PRN PRN Reason: SBP Greater Than 180 Dextrose/Water (D5w) 1,000 mls @ 0 mls/hr IV .Q0M PRN PRN Reason: Hypoglycemia Sodium Chloride (Normal Saline 0.9%) 1,000 mls @ 125 mls/hr IV .Q8H [facility] Last Admin: 10/11/18 17:35 Dose: Not Given Insulin Glargine 20 units/ (Miscellaneous Medication) 0.2 mls @ 0 mls/hr SC QAM [facility] Last Admin: 10/11/18 08:04 Dose: 0.2 mls Cefazolin Sodium/Dextrose 2 gm (/ Device) 50 mls @ 100 mls/hr IVPB Q8HR [facility] Last Admin: 10/11/18 14:32 Dose: 50 mls Insulin Glargine 20 units/ (Miscellaneous Medication) 0.2 mls @ 0 mls/hr SC HS [facility] Last Admin: 10/10/18 20:45 Dose: 0.2 mls Fentanyl Citrate 2,000 mcg/ (Sodium Chloride) 100 mls @ 0 mls/hr IV INF PRN PRN Reason: Pain Last Admin: 10/11/18 17:47 Dose: 100 mls Insulin Human Lispro (Humalog) 0 units SC .BEDTIME SLIDING SC PRN PRN Reason: Bedtime Correctional Scale Last Admin: 10/10/18 20:53 Dose: 4 unit Insulin Human Lispro (Humalog) 0 units SC .AGGRESSIVE SLIDING PRN PRN Reason: Aggressive Correctional Scale Last Admin: 10/11/18 17:47 Dose: 9 unit Miscellaneous Information (Communication Order-Pharmacy) 1 each FS ONE [facility] Stop: 10/12/18 17:01 Miscellaneous Medication (Pharmacy To Dose) 1 each IVPB PRN PRN PRN Reason: SEPTIC ARTHRITIS Naloxone HCl (Narcan) 0.2 mg IV Q5MIN PRN PRN Reason: Opiate Reversal Ondansetron HCl (Zofran Odt) 4 mg PO Q6H PRN PRN Reason: Nausea/Vomiting Last Admin: 10/11/18 15:47 Dose: 4 mg Ondansetron HCl (Zofran) 4 mg IVP Q6H PRN PRN Reason: Nausea/Vomiting Polyethylene Glycol (Miralax) 17 gm PO DAILY PRN PRN Reason: Constipation Potassium Chloride (K-Dur) 20 meq PO BID-[facility] Stop: 10/12/18 08:01 Last Admin: 10/11/18 17:46 Dose: 20 meq Promethazine HCl (Phenergan) 12.5 mg IM Q4H PRN PRN Reason: Nausea/Vomiting Rifampin (Rifadin) 300 mg PO 1000,2200 [facility] Last Admin: 10/11/18 11:06 Dose: 300 mg Saccharomyces Boulardii (Florastor) 250 mg PO DAILY [facility] Last Admin: 10/11/18 08:03 Dose: 250 mg Senna/Docusate Sodium (Senokot S) 1 tab PO BID [facility] Last Admin: 10/11/18 08:04 Dose: 1 tab Sodium Chloride (Flush - Normal Saline) 10 ml IVF Q12HR [facility] Last Admin: 10/11/18 08:04 Dose: 10 ml Sodium Chloride (Flush - Normal Saline) 10 ml IVF PRN PRN PRN Reason: Saline Flush Zolpidem Tartrate (Ambien) 5 mg PO HSPRN PRN PRN Reason: Insomnia
--- NOTE | 2018-10-11 18:58 | PRG ---
DATE OF SERVICE: 10/11/2018 SUBJECTIVE: Dominic Saez remains hemodynamically stable. He is getting fentanyl every 2 to 3 hours according to the nurse plus hydrocodone. He says his pain is not controlled. OBJECTIVE: VITAL SIGNS: He is afebrile, heart rate is 87, respiratory rate is 20, oximetry is 98% on room air. LUNGS: Clear. HEART: Regular rhythm. ABDOMEN: Soft. LABORATORY DATA: White count 19.2, hemoglobin 10.9, and platelets 329,000. Sodium 132, potassium 3.4, chloride 102, bicarb 20, BUN 21, and creatinine 0.74. IMPRESSION: Septic knee, status post washout with group B strep isolated from his knee aspirate. PLAN: Continue antimicrobial therapy. Discussed with Orthopedic Surgery getting Anesthesia to consider adding a INSURANCE SALES EXECUTIVE pump, so his pain management can be simplified and not have breakthrough pain. I do believe he probably has some degree of thyroid secondary to chronic opiate use and also has some degree of an opiate addiction, so I would set a boundary on how long he could have a INSURANCE SALES EXECUTIVE pump and then switch him to p.o. pain management. Since he has the INSURANCE SALES EXECUTIVE pump, I would stop other drugs by mouth and intravenously. I would also recommend discontinuing his sleeping pill since he has sleep apnea. Job ID: [id number] [facility]
[2018-10-12] MEDS: CEFAZOLIN 2 GM in Premix Bag 1 BAG IVPB SCH ×3 (05:53→21:19)
[2018-10-12 06:13] LABS: Anion Gap 13 mmol/L (10-20); BUN (Urea Nitrogen) 13 mg/dL (8.4-25.7); Calc. Creatinine Clearance 200 mL/min (70-130); Calcium 9.4 mg/dL (7.8-10.44); Carbon Dioxide 25 mmol/L (22-29); Chloride 100 mmol/L (98-107); Estimated GFR-MDRD Greater than 90; Glucose 179 mg/dL (70-105); Potassium 3.7 mmol/L (3.5-5.1); Sodium 134 mmol/L (136-145)
[2018-10-12 06:21] LABS: Band 9 % (5-11); Hemoglobin 12.1 g/dL (14.0-18.0); Lymphocytes 23 % (21-51); MDiff Complete? YES; Mean Corpuscular HGB CONC 32.8 g/dL (32.0-36.0); Mean Corpuscular Hemoglobin 29.1 pg (27.0-31.0); Mean Corpuscular Volume 88.6 fL (78.0-98.0); Metamyelocyte 6 % (0-0); Monocytes 6 % (0-10); Myelocyte 2 % (0-0); Neutrophil 54 % (42-75); Platelet Count 340 thou/uL (130-400); Platelet Morphology Comment Appears Adequate; RBC Distribution Width 13.8 % (11.5-14.5); Red Blood Cell (RBC) Count 4.16 mill/uL (4.70-6.10); White Blood Cell (WBC) Count 17.9 thou/uL (4.8-10.8)
[2018-10-12] MEDS: HumaLOG 300 UNITS/3 ML VIAL SC PRN ×3 (06:27→16:59)
[2018-10-12] MEDS: fentaNYL Citrate/PF 2,000 MCG in Sodium Chloride 0.9% 60 ML IV PRN (08:06)
[2018-10-12] MEDS: Senokot S 8.6-50 MG TAB PO SCH ×2 (08:08→21:17)
[2018-10-12] MEDS: Saccharomyces boulardii 250 MG CAP PO SCH (08:08)
[2018-10-12] MEDS: DULoxetine 60 MG CAP PO SCH (08:08)
[2018-10-12] MEDS: Potassium Chloride 20 MEQ TAB PO SCH (08:08)
[2018-10-12] MEDS: Insulin Glargine 20 UNITS in Pre-Filled Syringe 1 EACH SC SCH ×2 (08:09→21:19)
[2018-10-12] MEDS: Enoxaparin Sodium 40 MG/0.4 ML SYRINGE SC SCH (08:09)
[2018-10-12] MEDS: Rifampin 300 MG CAP PO SCH ×2 (10:42→21:16)
[2018-10-12] MEDS: Ondansetron ODT 4 MG TAB PO PRN (10:45)
[2018-10-12] MEDS: Sodium Chloride 0.9% 1,000 ML IV SCH (14:02)
[2018-10-12] MEDS: HYDROcodone/Acetaminophen 10/325 mg Tablet PO PRN ×3 (15:01→23:55)
--- NOTE | 2018-10-12 16:04 | PDOC.PN ---
- Subjective Encounter Start Date: 10/12/18 Encounter Start Time: 11:30 Mr. Saez was seen today in follow-up of septic arthritis and osteomyelitis of the toe. He says he has some egree of pain and swelling in the knee. He is currently on a PIE FILLING MIXER pump. - Objective Resuscitation Status - Order Detail: 10/09/18 02:36 Resuscitation Status Routine Resuscitation Status: FULL: Full Resuscitation MAR Reviewed: Yes Vital Signs & Weight: Vital Signs (12 hours) Temp Pulse Resp BP BP Pulse Ox 10/12/18 11:35 98.4 F 95 20 152/89 H 96 10/12/18 10:36 90 16 10/12/18 08:00 95 10/12/18 07:20 98.8 F 84 20 160/98 H 95 10/12/18 06:53 90 16 Weight Admit Weight 264 lb 3.2 oz Weight 289 lb 8 oz Most Recent Monitor Data Heart Rate from ECG 90 NIBP 142/83 NIBP BP-Mean 102 Respiration from ECG 24 SpO2 97 I&O: 10/11/18 10/12/18 10/13/18 06:59 06:59 06:59 Intake Total 5371 Output Total 2825 990 Balance 2546 -990 Result Diagrams: 10/12/18 04:26 10/12/18 04:26 Additional Labs: Accuchecks 10/12/18 10/12/18 10/11/18 11:44 05:16 20:18 POC Glucose 257 H 185 H 180 H 10/11/18 16:37 POC Glucose 265 H Phys Exam - Physical Examination HEENT: PERRLA Respiratory: no wheezing, no rales, no rhonchi, clear to auscultation bilateral Cardiovascular: RRR, no significant murmur, no rub Gastrointestinal: soft, non-tender, no distention, positive bowel sounds Musculoskeletal: no edema, pulses present 2nd toe left foot- s/p amputation Dx/Plan (1) Osteomyelitis of second toe of left foot Code(s): M86.9 - OSTEOMYELITIS, UNSPECIFIED Status: Acute (2) Septic joint of right knee joint Code(s): M00.9 - PYOGENIC ARTHRITIS, UNSPECIFIED Status: Acute (3) Diabetes mellitus type 2 in obese Code(s): E11.69 - TYPE 2 DIABETES MELLITUS WITH OTHER SPECIFIED COMPLICATION; E66.9 - OBESITY, UNSPECIFIED Status: Acute (4) Hypertension Code(s): I10 - ESSENTIAL (PRIMARY) HYPERTENSION Status: Acute (5) Chronic kidney disease, stage 3 Code(s): N18.3 - CHRONIC KIDNEY DISEASE, STAGE 3 (MODERATE) Status: Acute - Plan * Septic right knee- he had a prosthetic joint- continue Ancef and Rifampin- until November 21 * Osteomyelitis of the toe- he is s/p amputation. * HTN- blood pressure is a bit labile- will continue to treat with PRN medications, will re-start [place] once he is a bit more stable * DM- also a bit labile- continue SSI and scheduled long acting insulin * Will need to begin arrangements for meterman IV antibiotics
[2018-10-12] MEDS ORDERED: HYDROcodone/Acetaminophen 10/325 mg Tablet PO PRN (17:00)
[2018-10-12] MEDS ORDERED: traMADol HCl 50 MG TAB PO PRN (18:00)
[2018-10-12] MEDS: Pregabalin 50 MG CAP PO SCH (21:16)
[2018-10-12] MEDS: traMADol HCl 50 MG TAB PO PRN (21:17)
[2018-10-13] MEDS: diphenhydrAMINE 25 MG CAP PO PRN (00:46)
[2018-10-13] MEDS: HYDROcodone/Acetaminophen 10/325 mg Tablet PO PRN ×3 (05:05→16:59)
[2018-10-13] MEDS: CEFAZOLIN 2 GM in Premix Bag 1 BAG IVPB SCH ×3 (05:07→21:52)
[2018-10-13] MEDS: HumaLOG 300 UNITS/3 ML VIAL SC PRN ×4 (05:54→20:36)
[2018-10-13] MEDS: Pregabalin 50 MG CAP PO SCH ×2 (08:27→20:31)
[2018-10-13] MEDS: DULoxetine 60 MG CAP PO SCH (08:27)
[2018-10-13] MEDS: Saccharomyces boulardii 250 MG CAP PO SCH (08:28)
[2018-10-13] MEDS: Senokot S 8.6-50 MG TAB PO SCH ×2 (08:28→20:28)
[2018-10-13] MEDS: Enoxaparin Sodium 40 MG/0.4 ML SYRINGE SC SCH (08:29)
[2018-10-13] MEDS: Insulin Glargine 20 UNITS in Pre-Filled Syringe 1 EACH SC SCH ×2 (08:29→20:35)
[2018-10-13] MEDS: Sodium Chloride 0.9% 1,000 ML IV SCH (10:48)
[2018-10-13] MEDS: Rifampin 300 MG CAP PO SCH ×2 (10:48→21:52)
[2018-10-13] MEDS: fentaNYL Citrate/PF 2,000 MCG in Sodium Chloride 0.9% 60 ML IV PRN (12:56)
[2018-10-13] MEDS: traMADol HCl 50 MG TAB PO PRN ×2 (13:59→20:28)
--- NOTE | 2018-10-13 14:40 | PDOC.PN ---
- Subjective Encounter Start Date: 10/13/18 Encounter Start Time: 11:40 Ms. Saez was seen today in follow-up of osteomyelitis of the 2nd toe left foot, and septic right knee. He was having signifiacnt pain in the knee. He is requiring a HARM REDUCTION WORKER pump for pain control. - Objective Resuscitation Status - Order Detail: 10/09/18 02:36 Resuscitation Status Routine Resuscitation Status: FULL: Full Resuscitation MAR Reviewed: Yes Vital Signs & Weight: Vital Signs (12 hours) Temp Pulse Resp BP BP Pulse Ox 10/13/18 12:49 83 16 94 L 10/13/18 11:05 98.4 F 89 12 167/88 H 96 10/13/18 08:00 98.5 F 78 147/83 H 95 10/13/18 07:54 95 10/13/18 07:21 98.6 F 80 20 152/85 H 95 10/13/18 07:02 95 10/13/18 06:58 81 16 95 10/13/18 05:08 159/83 H 10/13/18 04:00 98.1 F 81 18 176/84 H 96 Weight Admit Weight 264 lb 3.2 oz Weight 289 lb 8 oz Most Recent Monitor Data Heart Rate from ECG 90 NIBP 142/83 NIBP BP-Mean 102 Respiration from ECG 24 SpO2 97 I&O: 10/12/18 10/13/18 10/14/18 06:59 06:59 06:59 Intake Total 3428 Output Total 990 2150 Balance -990 1278 Result Diagrams: 10/12/18 04:26 10/12/18 04:26 Additional Labs: Accuchecks 10/13/18 10/13/18 10/12/18 11:42 05:46 20:49 POC Glucose 196 H 153 H 201 H 10/12/18 15:48 POC Glucose 178 H Phys Exam - Physical Examination HEENT: PERRLA Respiratory: no wheezing, no rales, no rhonchi, clear to auscultation bilateral Cardiovascular: RRR, no significant murmur, no rub Gastrointestinal: soft, non-tender, no distention, positive bowel sounds Musculoskeletal: no edema, pulses present Dx/Plan (1) Osteomyelitis of second toe of left foot Code(s): M86.9 - OSTEOMYELITIS, UNSPECIFIED Status: Acute (2) Septic joint of right knee joint Code(s): M00.9 - PYOGENIC ARTHRITIS, UNSPECIFIED Status: Acute (3) Diabetes mellitus type 2 in obese Code(s): E11.69 - TYPE 2 DIABETES MELLITUS WITH OTHER SPECIFIED COMPLICATION; E66.9 - OBESITY, UNSPECIFIED Status: Acute (4) Hypertension Code(s): I10 - ESSENTIAL (PRIMARY) HYPERTENSION Status: Acute (5) Chronic kidney disease, stage 3 Code(s): N18.3 - CHRONIC KIDNEY DISEASE, STAGE 3 (MODERATE) Status: Acute - Plan * Osteomyelitis of the second toe- he is s/p amputation * Septic right knee- continue Cefazolin and Rifampin * DM- blood glucose is stable * CKD stage 3- stable * HTN- continue PRN medications for now * Awaiting Rehab for usp antibiotics .
[2018-10-14] MEDS: HYDROcodone/Acetaminophen 10/325 mg Tablet PO PRN ×6 (04:15→23:26)
[2018-10-14] MEDS: Sodium Chloride 0.9% 1,000 ML IV SCH ×2 (04:16→21:50)
[2018-10-14 05:17] LABS: #Eosinphils 0.2 thou/uL (0.0-0.7); #Lymphocytes 2.9 thou/uL (1.20-3.40); #Monocytes 1.1 thou/uL (0.11-0.59); #Neutrophils 12.5 thou/uL (1.40-6.50); %Basophils 0.2 % (0.0-1.0); %Eosinophils 1.4 % (0.0-10.0); %Lymphocytes 17.3 % (21.0-51.0); %Monocytes 6.7 % (0.0-10.0); %Neutrophils 74.4 % (42.0-75.0); Hemoglobin 10.9 g/dL (14.0-18.0); Mean Corpuscular HGB CONC 33.7 g/dL (32.0-36.0); Mean Corpuscular Hemoglobin 29.8 pg (27.0-31.0); Mean Corpuscular Volume 88.6 fL (78.0-98.0); Mean Platelet Volume 6.8 fL (7.4-10.4); Platelet Count 412 thou/uL (130-400); RBC Distribution Width 13.4 % (11.5-14.5); Red Blood Cell (RBC) Count 3.67 mill/uL (4.70-6.10); White Blood Cell (WBC) Count 16.8 thou/uL (4.8-10.8)
[2018-10-14] MEDS: CEFAZOLIN 2 GM in Premix Bag 1 BAG IVPB SCH ×3 (06:06→21:45)
[2018-10-14] MEDS: HumaLOG 300 UNITS/3 ML VIAL SC PRN ×3 (06:12→21:53)
[2018-10-14] MEDS: Rifampin 300 MG CAP PO SCH ×2 (08:50→21:48)
[2018-10-14] MEDS: Saccharomyces boulardii 250 MG CAP PO SCH (08:50)
[2018-10-14] MEDS: DULoxetine 60 MG CAP PO SCH (08:50)
[2018-10-14] MEDS: Senokot S 8.6-50 MG TAB PO SCH ×2 (08:50→21:46)
[2018-10-14] MEDS: Pregabalin 50 MG CAP PO SCH ×2 (08:51→21:47)
[2018-10-14] MEDS: Enoxaparin Sodium 40 MG/0.4 ML SYRINGE SC SCH (08:55)
[2018-10-14] MEDS: Insulin Glargine 20 UNITS in Pre-Filled Syringe 1 EACH SC SCH ×2 (08:55→21:48)
--- NOTE | 2018-10-14 11:02 | PRG ---
DATE OF SERVICE: 10/14/2018 SUBJECTIVE: Dominic Saez is doing well. He was ambulating today. He is status post infected knee. OBJECTIVE: VITAL SIGNS: Temperature 98, pulse 76, respirations 16, saturations are 97% on room air, and blood pressure 165/94. CHEST: Decreased breath sounds. No wheezing. CARDIAC: Normal S1 and S2. No gallops. ABDOMEN: No masses. LABORATORY DATA: White count 16,000, H and H of 10 and 32, and platelet count is normal. Lytes are normal. ASSESSMENT: Sleep apnea . PLAN: Continue nocturnal CPAP. Supportive care. Antibiotics will follow. Job ID: [id number]
--- NOTE | 2018-10-14 12:11 | PDOC.PN ---
- Subjective Encounter Start Date: 10/14/18 Encounter Start Time: 10:15 Subjective: says pain is better now on meter tester fentanyl -: is mobilizing to bedside commode - Objective Resuscitation Status - Order Detail: 10/09/18 02:36 Resuscitation Status Routine Resuscitation Status: FULL: Full Resuscitation MAR Reviewed: Yes Vital Signs & Weight: Vital Signs (12 hours) Temp Pulse Resp BP Pulse Ox 10/14/18 07:03 98.7 F 76 16 165/94 H 97 10/14/18 06:42 96 10/14/18 06:38 77 16 96 10/14/18 04:00 99.1 F 78 16 169/89 H 93 L 10/14/18 02:30 92 L 10/14/18 02:15 16 10/14/18 01:06 16 Weight Admit Weight 264 lb 3.2 oz Weight 289 lb 8 oz Most Recent Monitor Data Heart Rate from ECG 90 NIBP 142/83 NIBP BP-Mean 102 Respiration from ECG 24 SpO2 97 I&O: 10/13/18 10/14/18 10/15/18 06:59 06:59 06:59 Intake Total 3428 2750 Output Total 2150 1750 Balance 1278 1000 Result Diagrams: 10/14/18 04:08 10/12/18 04:26 Additional Labs: Accuchecks 10/14/18 10/14/18 10/13/18 11:01 06:10 20:34 POC Glucose 253 H 186 H 285 H 10/13/18 16:11 POC Glucose 197 H Phys Exam - Physical Examination HEENT: PERRLA, moist MMs Neck: no JVD, supple Respiratory: no wheezing, no rales Cardiovascular: RRR, no significant murmur Gastrointestinal: soft, non-tender, positive bowel sounds Musculoskeletal: pulses present, edema present right knee in dressing, left 2nd toe amp sutures are clean Neurological: non-focal, moves all 4 limbs Psychiatric: normal affect, A&O x 3 Dx/Plan (1) Septic joint of right knee joint Code(s): M00.9 - PYOGENIC ARTHRITIS, UNSPECIFIED Status: Acute Comment: s/p revision of TKA with poly exchange 10/09/18 (2) Osteomyelitis of second toe of left foot Code(s): M86.9 - OSTEOMYELITIS, UNSPECIFIED Status: Acute Comment: s/p amp of mtp joint 2nd toe left 10/09/2018 (3) Obesity Code(s): E66.9 - OBESITY, UNSPECIFIED Status: Chronic Qualifiers: Obesity classification: adult class 3 (BMI >= 40) Body mass index: BMI 40.0 -44.9 (4) INDER (obstructive sleep apnea) Code(s): G47.33 - OBSTRUCTIVE SLEEP APNEA (ADULT) (PEDIATRIC) Status: Chronic (5) Diabetes mellitus type 2 in obese Code(s): E11.69 - TYPE 2 DIABETES MELLITUS WITH OTHER SPECIFIED COMPLICATION; E66.9 - OBESITY, UNSPECIFIED Status: Chronic (6) Hypertension Code(s): I10 - ESSENTIAL (PRIMARY) HYPERTENSION Status: Acute Qualifiers: Hypertension type: essential hypertension Qualified Code(s): I10 - Essential (primary) hypertension - Plan hemostable -: is on cefazolin and rifampin, to go on ceftriaxone and rifamp on dc till -: -11/21/2018 -: is on fentanyl [employer], may switch to patch if ok with anesthesia -: on lyrica, cymbalta, lantus bid, norco, ultram prn * . Review of Systems - Medications/Allergies Allergies/Adverse Reactions: Allergies Allergy/AdvReac Type Severity Reaction Status Date / Time No Known Allergies Allergy Verified 10/09/18 03:51 Medications: Current Medications Acetaminophen (Tylenol) 650 mg PO Q4H PRN PRN Reason: Headache/Fever/Mild Pain (1-3) Last Admin: 10/10/18 21:18 Dose: 650 mg Acetaminophen (Tylenol) 650 mg TN Q4H PRN PRN Reason: Headache/Fever/Mild Pain (1-3) Hydrocodone Bitart/Acetaminophen ([place] 10/325) 1 tab PO Q4HR PRN PRN Reason: Mild Pain (1-3) Hydrocodone Bitart/Acetaminophen ([place] 10/325) 2 tab PO Q4HR PRN PRN Reason: Moderate to Severe Pain (6-10) Last Admin: 10/14/18 08:54 Dose: 2 tab Albuterol/Ipratropium (Duoneb) 3 ml NEB [id number] NIRAV Last Admin: 10/14/18 12:09 Dose: Not Given Albuterol/Ipratropium (Duoneb) 3 ml NEB Q2H PRN PRN Reason: SOB &/or Wheezing Clonidine (Catapres) 0.1 mg PO Q4H PRN PRN Reason: SBP Greater Than 180 Dextrose/Water (Dextrose 50%) 25 gm SLOW IVP PRN PRN PRN Reason: Hypoglycemia Diphenhydramine HCl (Benadryl) 25 mg IVP Q3H PRN PRN Reason: Itching Diphenhydramine HCl (Benadryl) 25 mg PO Q3H PRN PRN Reason: Itching Last Admin: 10/13/18 00:46 Dose: 25 mg Diphenhydramine HCl (Benadryl) 25 mg IM Q3H PRN PRN Reason: Itching Duloxetine HCl (Cymbalta) 60 mg PO DAILY [facility] Last Admin: 10/14/18 08:50 Dose: 60 mg Enoxaparin Sodium (Lovenox) 40 mg SC 0900 [facility] Last Admin: 10/14/18 08:55 Dose: 40 mg Glucagon (Glucagon) 1 mg IM PRN PRN PRN Reason: Hypoglycemia Hydralazine HCl (Apresoline) 10 mg SLOW IVP Q4H PRN PRN Reason: SBP Greater Than 180 Hydralazine HCl (Apresoline) 25 mg PO TID PRN PRN Reason: SBP Greater Than 170 Dextrose/Water (D5w) 1,000 mls @ 0 mls/hr IV .Q0M PRN PRN Reason: Hypoglycemia Insulin Glargine 20 units/ (Miscellaneous Medication) 0.2 mls @ 0 mls/hr SC QAM [facility] Last Admin: 10/14/18 08:55 Dose: 0.2 mls Cefazolin Sodium/Dextrose 2 gm (/ Device) 50 mls @ 100 mls/hr IVPB Q8HR [facility] Last Admin: 10/14/18 06:06 Dose: 50 mls Insulin Glargine 20 units/ (Miscellaneous Medication) 0.2 mls @ 0 mls/hr SC HS [facility] Last Admin: 10/13/18 20:35 Dose: 0.2 mls Sodium Chloride (Normal Saline 0.9%) 1,000 mls @ 50 mls/hr IV .Q20H [facility] Last Admin: 10/14/18 04:16 Dose: 1,000 mls Fentanyl Citrate 2,000 mcg/ (Sodium Chloride) 100 mls @ 0 mls/hr IV INF PRN PRN Reason: Pain Last Admin: 10/13/18 12:56 Dose: 100 mls Insulin Human Lispro (Humalog) 0 units SC .BEDTIME SLIDING SC PRN PRN Reason: Bedtime Correctional Scale Last Admin: 10/13/18 20:36 Dose: 3 unit Insulin Human Lispro (Humalog) 0 units SC .AGGRESSIVE SLIDING PRN PRN Reason: Aggressive Correctional Scale Last Admin: 10/14/18 06:12 Dose: 3 unit Naloxone HCl (Narcan) 0.2 mg IV Q5MIN PRN PRN Reason: Opiate Reversal Ondansetron HCl (Zofran Odt) 4 mg PO Q6H PRN PRN Reason: Nausea/Vomiting Last Admin: 10/12/18 10:45 Dose: 4 mg Ondansetron HCl (Zofran) 4 mg IVP Q6H PRN PRN Reason: Nausea/Vomiting Polyethylene Glycol (Miralax) 17 gm PO DAILY PRN PRN Reason: Constipation Last Admin: 10/13/18 00:46 Dose: 17 gm Pregabalin (Lyrica) 200 mg PO BID [facility] Last Admin: 10/14/18 08:51 Dose: 200 mg Promethazine HCl (Phenergan) 12.5 mg IM Q4H PRN PRN Reason: Nausea/Vomiting Rifampin (Rifadin) 300 mg PO 1000,2200 [facility] Last Admin: 10/14/18 08:50 Dose: 300 mg Saccharomyces Boulardii (Florastor) 250 mg PO DAILY [facility] Last Admin: 10/14/18 08:50 Dose: 250 mg Senna/Docusate Sodium (Senokot S) 1 tab PO BID [facility] Last Admin: 10/14/18 08:50 Dose: 1 tab Sodium Chloride (Flush - Normal Saline) 10 ml IVF Q12HR [facility] Last Admin: 10/14/18 08:51 Dose: Not Given Sodium Chloride (Flush - Normal Saline) 10 ml IVF PRN PRN PRN Reason: Saline Flush Tramadol HCl (Ultram) 50 mg PO Q6HR PRN PRN Reason: Mild Pain (1-3) Tramadol HCl (Ultram) 100 mg PO Q6HR PRN PRN Reason: Moderate to Severe Pain (6-10) Last Admin: 10/13/18 20:28 Dose: 100 mg
[2018-10-14] MEDS: fentaNYL Citrate/PF 2,000 MCG in Sodium Chloride 0.9% 60 ML IV PRN (12:58)
[2018-10-14] MEDS: traMADol HCl 50 MG TAB PO PRN (21:44)
[2018-10-15] MEDS: hydrALAZINE 25 MG TAB PO PRN (01:39)
[2018-10-15] MEDS: CEFAZOLIN 2 GM in Premix Bag 1 BAG IVPB SCH ×3 (06:25→22:12)
[2018-10-15] MEDS: HumaLOG 300 UNITS/3 ML VIAL SC PRN ×4 (06:25→22:12)
--- NOTE | 2018-10-15 08:01 | PRG ---
DATE OF SERVICE: 10/13/2018 SUBJECTIVE: Dominic Saez, this morning, is doing well. His knees much improved. Less short of breath, less pain. He has known history of sleep apnea, for which he is wearing CPAP and says his compliance is good. OBJECTIVE: VITAL SIGNS: Saturations are 95% on room air, temperature 98, pulse 78, blood pressure 147/83. CHEST: No wheezing or crackles. CARDIAC: Normal S1 and S2. ABDOMEN: Soft, no masses. ASSESSMENT: Infected knee antibiotics, sleep apnea. PLAN: Continue antibiotics as per Surgery. Continue nocturnal CPAP. We will follow. Job ID: [id number]
[2018-10-15] MEDS: DULoxetine 60 MG CAP PO SCH (08:32)
[2018-10-15] MEDS: Pregabalin 50 MG CAP PO SCH ×2 (08:33→22:10)
[2018-10-15] MEDS: cloNIDine 0.1 MG TAB PO PRN (08:34)
[2018-10-15] MEDS: Senokot S 8.6-50 MG TAB PO SCH ×2 (08:35→22:09)
[2018-10-15] MEDS: Saccharomyces boulardii 250 MG CAP PO SCH (08:35)
[2018-10-15] MEDS: Enoxaparin Sodium 40 MG/0.4 ML SYRINGE SC SCH (08:36)
[2018-10-15] MEDS: Insulin Glargine 20 UNITS in Pre-Filled Syringe 1 EACH SC SCH ×2 (08:37→22:08)
[2018-10-15] MEDS: HYDROcodone/Acetaminophen 10/325 mg Tablet PO PRN ×4 (08:51→22:09)
[2018-10-15] MEDS: Rifampin 300 MG CAP PO SCH ×2 (11:37→22:15)
[2018-10-15] MEDS: traMADol HCl 50 MG TAB PO PRN (13:49)
--- NOTE | 2018-10-15 14:13 | PDOC.PN ---
- Subjective Encounter Start Date: 10/15/18 Encounter Start Time: 10:00 Subjective: pain is same, no new complaints - Objective Resuscitation Status - Order Detail: 10/09/18 02:36 Resuscitation Status Routine Resuscitation Status: FULL: Full Resuscitation MAR Reviewed: Yes Vital Signs & Weight: Vital Signs (12 hours) Temp Pulse Resp BP BP BP Pulse Ox 10/15/18 13:04 149/78 H 10/15/18 11:00 97.7 F 82 20 170/79 H 97 10/15/18 10:33 79 14 95 10/15/18 10:15 168/92 H 10/15/18 08:34 186/91 H 10/15/18 08:25 186/91 H 10/15/18 08:00 95 10/15/18 07:15 98.4 F 86 16 173/99 H 95 10/15/18 06:36 86 16 94 L 10/15/18 04:00 98.2 F 77 16 164/92 H 95 Weight Admit Weight 264 lb 3.2 oz Weight 289 lb 8 oz Most Recent Monitor Data Heart Rate from ECG 90 NIBP 142/83 NIBP BP-Mean 102 Respiration from ECG 24 SpO2 97 I&O: 10/14/18 10/15/18 10/16/18 06:59 06:59 06:59 Intake Total 2750 1440 Output Total 1750 1525 Balance 1000 -1525 1440 Result Diagrams: 10/14/18 04:08 10/12/18 04:26 Additional Labs: Accuchecks 10/15/18 10/15/18 10/14/18 11:06 05:41 21:35 POC Glucose 243 H 189 H 248 H 10/14/18 15:29 POC Glucose 143 H Phys Exam - Physical Examination HEENT: PERRLA, moist MMs Neck: no JVD, supple Respiratory: no wheezing, no rales Cardiovascular: RRR, no significant murmur Gastrointestinal: soft, non-tender, positive bowel sounds Musculoskeletal: pulses present right knee in dressing, left 2nd toe stump sutures are clean Neurological: non-focal, moves all 4 limbs Psychiatric: normal affect, A&O x 3 Dx/Plan (1) Septic joint of right knee joint Code(s): M00.9 - PYOGENIC ARTHRITIS, UNSPECIFIED Status: Acute Comment: s/p revision of TKA with poly exchange 10/09/18 (2) Osteomyelitis of second toe of left foot Code(s): M86.9 - OSTEOMYELITIS, UNSPECIFIED Status: Acute Comment: s/p amp of mtp joint 2nd toe left 10/09/2018 (3) Obesity Code(s): E66.9 - OBESITY, UNSPECIFIED Status: Chronic Qualifiers: Obesity classification: adult class 3 (BMI >= 40) Body mass index: BMI 40.0 -44.9 (4) INDER (obstructive sleep apnea) Code(s): G47.33 - OBSTRUCTIVE SLEEP APNEA (ADULT) (PEDIATRIC) Status: Chronic (5) Diabetes mellitus type 2 in obese Code(s): E11.69 - TYPE 2 DIABETES MELLITUS WITH OTHER SPECIFIED COMPLICATION; E66.9 - OBESITY, UNSPECIFIED Status: Chronic (6) Hypertension Code(s): I10 - ESSENTIAL (PRIMARY) HYPERTENSION Status: Chronic Qualifiers: Hypertension type: essential hypertension Qualified Code(s): I10 - Essential (primary) hypertension - Plan hemostable -: is going to [place] in am -: is on cefazolin and rifampin, picc line today -: awaiting placement when ortho is ready for dc -: i.spirometry, lovenox for dvt prophylaxis * . continue lantus bid, cymbalta and lyrica. Aspiration precautions Review of Systems - Medications/Allergies Allergies/Adverse Reactions: Allergies Allergy/AdvReac Type Severity Reaction Status Date / Time No Known Allergies Allergy Verified 10/09/18 03:51 Medications: Current Medications Acetaminophen (Tylenol) 650 mg PO Q4H PRN PRN Reason: Headache/Fever/Mild Pain (1-3) Last Admin: 10/10/18 21:18 Dose: 650 mg Acetaminophen (Tylenol) 650 mg [place] Q4H PRN PRN Reason: Headache/Fever/Mild Pain (1-3) Hydrocodone Bitart/Acetaminophen ([place] 10/325) 1 tab PO Q4HR PRN PRN Reason: Mild Pain (1-3) Hydrocodone Bitart/Acetaminophen ([place] 10/325) 2 tab PO Q4HR PRN PRN Reason: Moderate to Severe Pain (6-10) Last Admin: 10/15/18 13:01 Dose: 2 tab Albuterol/Ipratropium (Duoneb) 3 ml NEB [id number] NIRAV Last Admin: 10/15/18 10:33 Dose: 3 ml Albuterol/Ipratropium (Duoneb) 3 ml NEB Q2H PRN PRN Reason: SOB &/or Wheezing Clonidine (Catapres) 0.1 mg PO Q4H PRN PRN Reason: SBP Greater Than 180 Last Admin: 10/15/18 08:34 Dose: 0.1 mg Dextrose/Water (Dextrose 50%) 25 gm SLOW IVP PRN PRN PRN Reason: Hypoglycemia Diphenhydramine HCl (Benadryl) 25 mg IVP Q3H PRN PRN Reason: Itching Diphenhydramine HCl (Benadryl) 25 mg PO Q3H PRN PRN Reason: Itching Last Admin: 10/13/18 00:46 Dose: 25 mg Diphenhydramine HCl (Benadryl) 25 mg IM Q3H PRN PRN Reason: Itching Duloxetine HCl (Cymbalta) 60 mg PO DAILY [facility] Last Admin: 10/15/18 08:33 Dose: 60 mg Enoxaparin Sodium (Lovenox) 40 mg SC 0900 [facility] Last Admin: 10/15/18 08:36 Dose: 40 mg Glucagon (Glucagon) 1 mg IM PRN PRN PRN Reason: Hypoglycemia Hydralazine HCl (Apresoline) 10 mg SLOW IVP Q4H PRN PRN Reason: SBP Greater Than 180 Hydralazine HCl (Apresoline) 25 mg PO TID PRN PRN Reason: SBP Greater Than 170 Last Admin: 10/15/18 01:39 Dose: 25 mg Dextrose/Water (D5w) 1,000 mls @ 0 mls/hr IV .Q0M PRN PRN Reason: Hypoglycemia Insulin Glargine 20 units/ (Miscellaneous Medication) 0.2 mls @ 0 mls/hr SC QAM [facility] Last Admin: 10/15/18 08:37 Dose: 0.2 mls Cefazolin Sodium/Dextrose 2 gm (/ Device) 50 mls @ 100 mls/hr IVPB Q8HR [facility] Last Admin: 10/15/18 06:25 Dose: 50 mls Insulin Glargine 20 units/ (Miscellaneous Medication) 0.2 mls @ 0 mls/hr SC HS [facility] Last Admin: 10/14/18 21:48 Dose: 0.2 mls Sodium Chloride (Normal Saline 0.9%) 1,000 mls @ 50 mls/hr IV .Q20H [facility] Last Admin: 10/14/18 21:50 Dose: 1,000 mls Fentanyl Citrate 2,000 mcg/ (Sodium Chloride) 100 mls @ 0 mls/hr IV INF PRN PRN Reason: Pain Last Admin: 10/14/18 12:58 Dose: 100 mls Insulin Human Lispro (Humalog) 0 units SC .BEDTIME SLIDING SC PRN PRN Reason: Bedtime Correctional Scale Last Admin: 10/14/18 21:53 Dose: 2 unit Insulin Human Lispro (Humalog) 0 units SC .AGGRESSIVE SLIDING PRN PRN Reason: Aggressive Correctional Scale Last Admin: 10/15/18 11:37 Dose: 9 unit Naloxone HCl (Narcan) 0.2 mg IV Q5MIN PRN PRN Reason: Opiate Reversal Ondansetron HCl (Zofran Odt) 4 mg PO Q6H PRN PRN Reason: Nausea/Vomiting Last Admin: 10/12/18 10:45 Dose: 4 mg Ondansetron HCl (Zofran) 4 mg IVP Q6H PRN PRN Reason: Nausea/Vomiting Polyethylene Glycol (Miralax) 17 gm PO DAILY PRN PRN Reason: Constipation Last Admin: 10/13/18 00:46 Dose: 17 gm Pregabalin (Lyrica) 200 mg PO BID [facility] Last Admin: 10/15/18 08:33 Dose: 200 mg Promethazine HCl (Phenergan) 12.5 mg IM Q4H PRN PRN Reason: Nausea/Vomiting Rifampin (Rifadin) 300 mg PO 1000,2200 [facility] Last Admin: 10/15/18 11:37 Dose: 300 mg Saccharomyces Boulardii (Florastor) 250 mg PO DAILY [facility] Last Admin: 10/15/18 08:35 Dose: 250 mg Senna/Docusate Sodium (Senokot S) 1 tab PO BID [facility] Last Admin: 10/15/18 08:35 Dose: 1 tab Sodium Chloride (Flush - Normal Saline) 10 ml IVF Q12HR [facility] Last Admin: 10/15/18 08:37 Dose: 10 ml Sodium Chloride (Flush - Normal Saline) 10 ml IVF PRN PRN PRN Reason: Saline Flush Tramadol HCl (Ultram) 50 mg PO Q6HR PRN PRN Reason: Mild Pain (1-3) Tramadol HCl (Ultram) 100 mg PO Q6HR PRN PRN Reason: Moderate to Severe Pain (6-10) Last Admin: 10/15/18 13:49 Dose: 100 mg
--- NOTE | 2018-10-15 15:17 | SPC ---
SPC CVP LINE PICC INITIAL >5: 10/15/2018 12:00 AM PROCEDURE: Peripherally placed 51 cm single lumen PICC line. PICC Line Placement: The left arm was prepped and draped in sterile fashion. One percent lidocaine was used for local anesthetic. Under fluoroscopic and ultrasound guidance, the left basilic vein was patent and accessed with a micr opuncture needle. A guide wire was then advanced into the left basilic vein. A vascular sheath was then advanced over a guide wire, and a single lumen PICC line was trimmed. The PICC line was th en advanced into the central venous system. A final placement film demonstrates the tip of the catheter terminated in the caval-atrial junction. After confirmation of the catheter position, the catheter was sutured in place at the skin entry site . There was no immediate complication. Total fluoroscopic time 0.4 minutes. Total exposure 6045 mgray/sq cm IMPRESSION: Peripheral placement of a single lumen power PICC line into the left basilic vein using fluoroscopic and ultrasound guidance.
--- NOTE | 2018-10-15 16:58 | PRG ---
DATE OF SERVICE: 10/15/2018 SUBJECTIVE: Does not feet yet back to his baseline. Still quite a bit of pain in the right knee. Hepatitis not back to normal. No respiratory symptoms. No diarrhea. Urinating without difficulty. OBJECTIVE: VITAL SIGNS: T-max 98.5, blood pressure 140/70, pulse 80. GENERAL: Awake, oriented, does not appear in distress. HEENT: Ocular movements conjugate. Oral cavity somewhat dry. LUNGS: Clear. HEART: S1 and S2, regular rate. ABDOMEN: Soft, slightly distended, but not tender. No bladder distention. EXTREMITIES: The right knee wrapped with [place] wrap, still quite a bit of tenderness. LABORATORY DATA: His white cell count is down to 16.8, hemoglobin 10.9, and platelets 412. Creatinine 0.7. Microbiology has been noted before in the operative report from Dr. Flores included infected right total knee arthroplasty. The patient had a revision with poly exchange and purulent material was found within the knee. Synovectomy was completed. The implants have remained in place. ASSESSMENT AND DISCUSSION: Chronic obstructive pulmonary disease; osteomyelitis of left second toe, status post amputation; left knee arthroplasty; group B strep infection; status post retention with poly exchange and washout. The patient has started treatment and still has another 37 days to go. The end date of therapy is calculated around November 21 and he is currently receiving cefazolin and rifampin to be continued and after that, transition to Keflex, rifampin for 3 months, and then suppressive Keflex. Job ID: [id number]
[2018-10-15] MEDS: fentaNYL Citrate/PF 2,000 MCG in Sodium Chloride 0.9% 60 ML IV PRN (22:51)
[2018-10-15] MEDS: Sodium Chloride 0.9% 1,000 ML IV SCH (23:01)
[2018-10-16] MEDS: CEFAZOLIN 2 GM in Premix Bag 1 BAG IVPB SCH ×3 (05:26→21:26)
[2018-10-16] MEDS: HYDROcodone/Acetaminophen 10/325 mg Tablet PO PRN ×3 (05:26→21:25)
[2018-10-16] MEDS: HumaLOG 300 UNITS/3 ML VIAL SC PRN ×2 (05:40→11:39)
[2018-10-16 08:32] LABS: #Eosinphils 0.3 thou/uL (0.0-0.7); #Lymphocytes 2.1 thou/uL (1.20-3.40); #Monocytes 1.2 thou/uL (0.11-0.59); #Neutrophils 11.1 thou/uL (1.40-6.50); %Basophils 0.2 % (0.0-1.0); %Eosinophils 2.3 % (0.0-10.0); %Monocytes 7.8 % (0.0-10.0); %Neutrophils 75.7 % (42.0-75.0); Hemoglobin 9.9 g/dL (14.0-18.0); Mean Corpuscular Hemoglobin 29.9 pg (27.0-31.0); Mean Corpuscular Volume 87.9 fL (78.0-98.0); Mean Platelet Volume 6.3 fL (7.4-10.4); Platelet Count 488 thou/uL (130-400); RBC Distribution Width 13.2 % (11.5-14.5); Red Blood Cell (RBC) Count 3.32 mill/uL (4.70-6.10); White Blood Cell (WBC) Count 14.7 thou/uL (4.8-10.8)
[2018-10-16] MEDS: Insulin Glargine 20 UNITS in Pre-Filled Syringe 1 EACH SC SCH ×2 (08:56→21:04)
[2018-10-16] MEDS: Rifampin 300 MG CAP PO SCH ×2 (09:29→21:25)
[2018-10-16] MEDS: Pregabalin 50 MG CAP PO SCH ×2 (09:30→21:29)
[2018-10-16] MEDS: Saccharomyces boulardii 250 MG CAP PO SCH (09:31)
[2018-10-16] MEDS: Senokot S 8.6-50 MG TAB PO SCH ×2 (09:31→21:26)
[2018-10-16] MEDS: DULoxetine 60 MG CAP PO SCH (09:34)
--- NOTE | 2018-10-16 11:57 | PDOC.PN ---
- Subjective Encounter Start Date: 10/16/18 Encounter Start Time: 11:00 Subjective: knee pain is better on current meds -: moves just to bedside commode, has not ambulated much -: no sob or chest pain - Objective Resuscitation Status - Order Detail: 10/09/18 02:36 Resuscitation Status Routine Resuscitation Status: FULL: Full Resuscitation MAR Reviewed: Yes Vital Signs & Weight: Vital Signs (12 hours) Temp Pulse Resp BP Pulse Ox 10/16/18 11:28 77 18 99 10/16/18 11:14 98.5 F 80 16 161/87 H 96 10/16/18 08:00 98.6 F 76 18 164/89 H 96 10/16/18 07:59 96 10/16/18 06:11 76 18 95 10/16/18 04:50 98.6 F 80 12 163/94 H 97 10/16/18 02:17 12 Weight Admit Weight 264 lb 3.2 oz Weight 289 lb 8 oz Most Recent Monitor Data Heart Rate from ECG 90 NIBP 142/83 NIBP BP-Mean 102 Respiration from ECG 24 SpO2 97 I&O: 10/15/18 10/16/18 10/17/18 06:59 06:59 06:59 Intake Total 6742 600 Output Total 1527 1423 2440 Balance -1525 1028 -7081 Result Diagrams: 10/16/18 08:20 10/12/18 04:26 Additional Labs: Accuchecks 10/16/18 10/16/18 10/15/18 11:20 05:40 23:33 POC Glucose 164 H 240 H 209 H 10/15/18 10/15/18 15:26 11:06 POC Glucose 253 H 243 H Phys Exam - Physical Examination HEENT: PERRLA, sclera anicteric Neck: no JVD, supple Respiratory: no wheezing, no rales Cardiovascular: RRR, no significant murmur Gastrointestinal: soft, non-tender, positive bowel sounds Musculoskeletal: pulses present, edema present right knee in crepe bandage Neurological: non-focal, moves all 4 limbs Psychiatric: normal affect, A&O x 3 Dx/Plan (1) Septic joint of right knee joint Code(s): M00.9 - PYOGENIC ARTHRITIS, UNSPECIFIED Status: Acute Comment: s/p revision of TKA with poly exchange 10/09/18 (2) Osteomyelitis of second toe of left foot Code(s): M86.9 - OSTEOMYELITIS, UNSPECIFIED Status: Acute Comment: s/p amp of mtp joint 2nd toe left 10/09/2018 (3) Obesity Code(s): E66.9 - OBESITY, UNSPECIFIED Status: Chronic Qualifiers: Obesity classification: adult class 3 (BMI >= 40) Body mass index: BMI 40.0 -44.9 (4) INDER (obstructive sleep apnea) Code(s): G47.33 - OBSTRUCTIVE SLEEP APNEA (ADULT) (PEDIATRIC) Status: Chronic (5) Diabetes mellitus type 2 in obese Code(s): E11.69 - TYPE 2 DIABETES MELLITUS WITH OTHER SPECIFIED COMPLICATION; E66.9 - OBESITY, UNSPECIFIED Status: Chronic (6) Hypertension Code(s): I10 - ESSENTIAL (PRIMARY) HYPERTENSION Status: Chronic Qualifiers: Hypertension type: essential hypertension Qualified Code(s): I10 - Essential (primary) hypertension - Plan hemostable -: unclear if he is going to [place] today, will check with staff -: is on cefazolin and rifampin -: continue nebs prn, lantus, lyrica, cymbalta -: pain meds per ortho/anesthesia adv * . will need placement, antibiotics till 21 of november and later suppression prophylaxis. Review of Systems - Medications/Allergies Allergies/Adverse Reactions: Allergies Allergy/AdvReac Type Severity Reaction Status Date / Time No Known Allergies Allergy Verified 10/09/18 03:51 Medications: Current Medications Acetaminophen (Tylenol) 650 mg PO Q4H PRN PRN Reason: Headache/Fever/Mild Pain (1-3) Last Admin: 10/10/18 21:18 Dose: 650 mg Acetaminophen (Tylenol) 650 mg SC Q4H PRN PRN Reason: Headache/Fever/Mild Pain (1-3) Hydrocodone Bitart/Acetaminophen ([place] 10/325) 1 tab PO Q4HR PRN PRN Reason: Mild Pain (1-3) Hydrocodone Bitart/Acetaminophen ([place] 10/325) 2 tab PO Q4HR PRN PRN Reason: Moderate to Severe Pain (6-10) Last Admin: 10/16/18 05:26 Dose: 2 tab Albuterol/Ipratropium (Duoneb) 3 ml NEB [id number] [id number] Last Admin: 10/16/18 11:28 Dose: 3 ml Albuterol/Ipratropium (Duoneb) 3 ml NEB Q2H PRN PRN Reason: SOB &/or Wheezing Clonidine (Catapres) 0.1 mg PO Q4H PRN PRN Reason: SBP Greater Than 180 Last Admin: 10/15/18 08:34 Dose: 0.1 mg Dextrose/Water (Dextrose 50%) 25 gm SLOW IVP PRN PRN PRN Reason: Hypoglycemia Diphenhydramine HCl (Benadryl) 25 mg IVP Q3H PRN PRN Reason: Itching Diphenhydramine HCl (Benadryl) 25 mg PO Q3H PRN PRN Reason: Itching Last Admin: 10/13/18 00:46 Dose: 25 mg Diphenhydramine HCl (Benadryl) 25 mg IM Q3H PRN PRN Reason: Itching Duloxetine HCl (Cymbalta) 60 mg PO DAILY [facility] Last Admin: 10/16/18 09:34 Dose: 60 mg Enoxaparin Sodium (Lovenox) 40 mg SC 0900 [facility] Last Admin: 10/15/18 08:36 Dose: 40 mg Glucagon (Glucagon) 1 mg IM PRN PRN PRN Reason: Hypoglycemia Hydralazine HCl (Apresoline) 10 mg SLOW IVP Q4H PRN PRN Reason: SBP Greater Than 180 Hydralazine HCl (Apresoline) 25 mg PO TID PRN PRN Reason: SBP Greater Than 170 Last Admin: 10/15/18 01:39 Dose: 25 mg Dextrose/Water (D5w) 1,000 mls @ 0 mls/hr IV .Q0M PRN PRN Reason: Hypoglycemia Insulin Glargine 20 units/ (Miscellaneous Medication) 0.2 mls @ 0 mls/hr SC QAM [facility] Last Admin: 10/16/18 08:56 Dose: 0.2 mls Cefazolin Sodium/Dextrose 2 gm (/ Device) 50 mls @ 100 mls/hr IVPB Q8HR [facility] Last Admin: 10/16/18 05:26 Dose: 50 mls Insulin Glargine 20 units/ (Miscellaneous Medication) 0.2 mls @ 0 mls/hr SC HS [facility] Last Admin: 10/15/18 22:08 Dose: 0.2 mls Sodium Chloride (Normal Saline 0.9%) 1,000 mls @ 50 mls/hr IV .Q20H [facility] Last Admin: 10/15/18 23:01 Dose: 1,000 mls Fentanyl Citrate 2,000 mcg/ (Sodium Chloride) 100 mls @ 0 mls/hr IV INF PRN PRN Reason: Pain Last Admin: 10/15/18 22:51 Dose: 100 mls Insulin Human Lispro (Humalog) 0 units SC .BEDTIME SLIDING SC PRN PRN Reason: Bedtime Correctional Scale Last Admin: 10/15/18 22:12 Dose: 2 unit Insulin Human Lispro (Humalog) 0 units SC .AGGRESSIVE SLIDING PRN PRN Reason: Aggressive Correctional Scale Last Admin: 10/16/18 11:39 Dose: 3 unit Naloxone HCl (Narcan) 0.2 mg IV Q5MIN PRN PRN Reason: Opiate Reversal Ondansetron HCl (Zofran Odt) 4 mg PO Q6H PRN PRN Reason: Nausea/Vomiting Last Admin: 10/12/18 10:45 Dose: 4 mg Ondansetron HCl (Zofran) 4 mg IVP Q6H PRN PRN Reason: Nausea/Vomiting Polyethylene Glycol (Miralax) 17 gm PO DAILY PRN PRN Reason: Constipation Last Admin: 10/13/18 00:46 Dose: 17 gm Pregabalin (Lyrica) 200 mg PO BID [facility] Last Admin: 10/16/18 09:30 Dose: 200 mg Promethazine HCl (Phenergan) 12.5 mg IM Q4H PRN PRN Reason: Nausea/Vomiting Rifampin (Rifadin) 300 mg PO 1000,2200 [facility] Last Admin: 10/16/18 09:29 Dose: 300 mg Saccharomyces Boulardii (Florastor) 250 mg PO DAILY [facility] Last Admin: 10/16/18 09:31 Dose: 250 mg Senna/Docusate Sodium (Senokot S) 1 tab PO BID [facility] Last Admin: 10/16/18 09:31 Dose: 1 tab Sodium Chloride (Flush - Normal Saline) 10 ml IVF Q12HR [facility] Last Admin: 10/16/18 09:31 Dose: Not Given Sodium Chloride (Flush - Normal Saline) 10 ml IVF PRN PRN PRN Reason: Saline Flush Tramadol HCl (Ultram) 50 mg PO Q6HR PRN PRN Reason: Mild Pain (1-3) Tramadol HCl (Ultram) 100 mg PO Q6HR PRN PRN Reason: Moderate to Severe Pain (6-10) Last Admin: 10/15/18 13:49 Dose: 100 mg
[2018-10-16] MEDS ORDERED: Neomycin-Polymyxin 1 ML AMP ONE (16:08)
[2018-10-16] MEDS ORDERED: Fentanyl 100 MCG/2 ML VIAL ONE ×5 (17:37→20:36)
[2018-10-16] MEDS ORDERED: Lidocaine 2% Jelly 5 ML TUBE ONE (17:51)
[2018-10-16] MEDS: Sodium Chloride 0.9% 1,000 ML IV SCH (18:51)
[2018-10-16] MEDS ORDERED: Promethazine HCl 25 MG/ML VIAL IM PRN (19:40)
[2018-10-16] MEDS ORDERED: Ondansetron HCl/PF 4 MG/2 ML Vial IVP PRN (19:40)
[2018-10-16] MEDS ORDERED: Promethazine HCl 25 MG/ML VIAL SLOW IVP PRN (19:40)
[2018-10-16] MEDS: fentaNYL Citrate/PF 2,000 MCG in Sodium Chloride 0.9% 60 ML IV PRN (20:59)
--- NOTE | 2018-10-16 21:09 | OP ---
DATE OF PROCEDURE: 10/16/2018 OPERATION PERFORMED: Irrigation and debridement of right knee. PREOPERATIVE DIAGNOSIS: Right septic knee arthritis. POSTOPERATIVE DIAGNOSIS: Right septic knee arthritis. COMPLICATIONS: None. ESTIMATED BLOOD LOSS: 200 mL. [facility] BORDER MEASURER: Dejan Ng PA-C. IMPLANTS: None. INDICATIONS: Mr. Dominic Saez is a 58-year-old male, who has developed a hematogenous infection of his total knee arthroplasty. This was related to an infected toe. His toe has been amputated. He has had a previous irrigation procedure and was indicated for repeat irrigation and debridement of the knee to hopefully eradicate infection and preserve his knee arthroplasty. DESCRIPTION OF OPERATION: Mr. Saez was identified in the preoperative holding area. His correct extremity was marked. He was carried to the operating room. He was positioned supine. General anesthesia was induced. A multidisciplinary time-out was performed. The right lower extremity was prepped and draped in sterile fashion. We began the procedure with opening the patient's anterior knee incision. We dissected down through the subcutaneous tissues to the quadriceps tendon. The tendon was opened medially for arthrotomy. We entered the knee. We encountered a large amount of hematoma which was coagulated. This was evacuated with a suction device. There was cloudy fluid in the knee as well. This was evacuated. We thoroughly irrigated the knee with copious lavage. We then performed a thorough synovectomy with a rongeur. We once again irrigated with a total of 6 L of lavage. At this point, we placed a deep Hemovac drain. We then closed the capsular layer with a 0 PDS suture, followed by 2-0 PDS and donya for the skin. A sterile dressing was applied at this point. The patient was taken to the recovery room in good condition without complication. Job ID: [id number]
[2018-10-16] MEDS: traMADol HCl 50 MG TAB PO PRN (22:37)
[2018-10-17] MEDS: HYDROcodone/Acetaminophen 10/325 mg Tablet PO PRN ×5 (01:33→21:27)
[2018-10-17] MEDS: traMADol HCl 50 MG TAB PO PRN (04:36)
[2018-10-17] MEDS: Sodium Chloride 0.9% 1,000 ML IV SCH (04:37)
[2018-10-17] MEDS: CEFAZOLIN 2 GM in Premix Bag 1 BAG IVPB SCH ×3 (06:14→21:32)
[2018-10-17] MEDS: HumaLOG 300 UNITS/3 ML VIAL SC PRN ×4 (06:20→21:32)
[2018-10-17 08:10] LABS: #Basophils 0.1 thou/uL (0.0-0.2); #Eosinphils 0.3 thou/uL (0.0-0.7); #Lymphocytes 2.3 thou/uL (1.20-3.40); #Monocytes 1.4 thou/uL (0.11-0.59); #Neutrophils 12.3 thou/uL (1.40-6.50); %Basophils 0.4 % (0.0-1.0); %Eosinophils 1.7 % (0.0-10.0); %Lymphocytes 13.9 % (21.0-51.0); %Monocytes 8.4 % (0.0-10.0); %Neutrophils 75.5 % (42.0-75.0); Hemoglobin 9.1 g/dL (14.0-18.0); Mean Corpuscular HGB CONC 33.3 g/dL (32.0-36.0); Mean Corpuscular Hemoglobin 29.4 pg (27.0-31.0); Mean Corpuscular Volume 88.2 fL (78.0-98.0); Mean Platelet Volume 6.3 fL (7.4-10.4); Platelet Count 534 thou/uL (130-400); RBC Distribution Width 12.9 % (11.5-14.5); White Blood Cell (WBC) Count 16.3 thou/uL (4.8-10.8)
[2018-10-17 08:30] LABS: ALT (SGPT) 8 U/L (8-55); AST (SGOT) 14 U/L (5-34); Albumin 2.5 g/dL (3.5-5.0); Alkaline Phosphatase 123 U/L (40-150); Anion Gap 11 mmol/L (10-20); BUN (Urea Nitrogen) 6 mg/dL (8.4-25.7); Bilirubin, Total 0.2 mg/dL (0.2-1.2); CRP (Inflammatory) 14.16 mg/dL (= or < 0.5); Calc. Creatinine Clearance 215 mL/min (70-130); Calcium 9.1 mg/dL (7.8-10.44); Carbon Dioxide 29 mmol/L (22-29); Chloride 96 mmol/L (98-107); Estimated GFR-MDRD Greater than 90; Globulin 3.3 g/dL (2.4-3.5); Glucose 169 mg/dL (70-105); Potassium 3.7 mmol/L (3.5-5.1); Protein, Total 5.8 g/dL (6.0-8.3); Sodium 132 mmol/L (136-145)
[2018-10-17] MEDS: Senokot S 8.6-50 MG TAB PO SCH ×2 (09:49→21:29)
[2018-10-17] MEDS: DULoxetine 60 MG CAP PO SCH (09:49)
[2018-10-17] MEDS: Pregabalin 50 MG CAP PO SCH ×2 (09:49→21:29)
[2018-10-17] MEDS: Rifampin 300 MG CAP PO SCH ×2 (09:51→21:28)
[2018-10-17] MEDS: Insulin Glargine 20 UNITS in Pre-Filled Syringe 1 EACH SC SCH ×2 (09:51→21:32)
[2018-10-17] MEDS: Saccharomyces boulardii 250 MG CAP PO SCH (09:51)
[2018-10-17] MEDS: Enoxaparin Sodium 40 MG/0.4 ML SYRINGE SC SCH (12:16)
--- NOTE | 2018-10-17 12:31 | PDOC.PN ---
- Subjective Encounter Start Date: 10/17/18 Encounter Start Time: 10:00 Subjective: doesn't feel good, no chest pain or sob -: awake and oriented -: counselled to work with therapy today per ortho advice - Objective Resuscitation Status - Order Detail: 10/09/18 02:36 Resuscitation Status Routine Resuscitation Status: FULL: Full Resuscitation MAR Reviewed: Yes Vital Signs & Weight: Vital Signs (12 hours) Temp Pulse Resp BP Pulse Ox 10/17/18 10:59 98.7 F 82 18 171/94 H 96 10/17/18 10:43 80 14 10/17/18 09:15 98.1 F 83 18 137/73 94 L 10/17/18 07:35 99.1 F 84 20 166/90 H 95 10/17/18 07:01 85 16 94 L 10/17/18 04:00 98.7 F 87 16 138/77 94 L Weight Admit Weight 264 lb 3.2 oz Weight 289 lb 8 oz Most Recent Monitor Data Heart Rate from ECG 90 NIBP 142/83 NIBP BP-Mean 102 Respiration from ECG 24 SpO2 97 I&O: 10/16/18 10/17/18 10/18/18 06:59 06:59 06:59 Intake Total 6742 3350 Output Total 1425 5025 Balance 5317 -7015 Result Diagrams: 10/17/18 07:50 10/17/18 07:50 Additional Labs: Accuchecks 10/17/18 10/17/18 10/16/18 11:07 05:51 21:03 POC Glucose 227 H 227 H 140 H 10/16/18 10/15/18 15:54 21:03 POC Glucose 117 H 221 H Phys Exam - Physical Examination HEENT: PERRLA, moist MMs Neck: no JVD, supple Respiratory: no wheezing, no rales Cardiovascular: RRR, no significant murmur Gastrointestinal: soft, non-tender, positive bowel sounds Musculoskeletal: pulses present right knee in dressing with drain, edema++ Neurological: non-focal, moves all 4 limbs Psychiatric: normal affect, A&O x 3 Dx/Plan (1) Septic joint of right knee joint Code(s): M00.9 - PYOGENIC ARTHRITIS, UNSPECIFIED Status: Acute Comment: s/p revision of TKA with poly exchange 10/09/18, repeat debridement on 10/16/2018 (2) Osteomyelitis of second toe of left foot Code(s): M86.9 - OSTEOMYELITIS, UNSPECIFIED Status: Acute Comment: s/p amp of mtp joint 2nd toe left 10/09/2018 (3) Obesity Code(s): E66.9 - OBESITY, UNSPECIFIED Status: Chronic Qualifiers: Obesity classification: adult class 3 (BMI >= 40) Body mass index: BMI 40.0 -44.9 (4) INDER (obstructive sleep apnea) Code(s): G47.33 - OBSTRUCTIVE SLEEP APNEA (ADULT) (PEDIATRIC) Status: Chronic (5) Diabetes mellitus type 2 in obese Code(s): E11.69 - TYPE 2 DIABETES MELLITUS WITH OTHER SPECIFIED COMPLICATION; E66.9 - OBESITY, UNSPECIFIED Status: Chronic (6) Hypertension Code(s): I10 - ESSENTIAL (PRIMARY) HYPERTENSION Status: Chronic Qualifiers: Hypertension type: essential hypertension Qualified Code(s): I10 - Essential (primary) hypertension - Plan hemostable -: to use i.spirometry, lovenox for dvt prophylaxis -: continue cefazolin, rifampin, lyrica, lantus, cymbalta -: pain meds per ortho/anesthesia adv, is on fentanyl footwear stitcher -: will need placement * . Review of Systems - Medications/Allergies Allergies/Adverse Reactions: Allergies Allergy/AdvReac Type Severity Reaction Status Date / Time No Known Allergies Allergy Verified 10/09/18 03:51 Medications: Current Medications Acetaminophen (Tylenol) 650 mg PO Q4H PRN PRN Reason: Headache/Fever/Mild Pain (1-3) Last Admin: 10/10/18 21:18 Dose: 650 mg Acetaminophen (Tylenol) 650 mg IN Q4H PRN PRN Reason: Headache/Fever/Mild Pain (1-3) Hydrocodone Bitart/Acetaminophen ([place] 10/325) 1 tab PO Q4HR PRN PRN Reason: Mild Pain (1-3) Hydrocodone Bitart/Acetaminophen ([place] 10/325) 2 tab PO Q4HR PRN PRN Reason: Moderate to Severe Pain (6-10) Last Admin: 10/17/18 06:14 Dose: 2 tab Albuterol/Ipratropium (Duoneb) 3 ml NEB [id number] Last Admin: 10/17/18 10:43 Dose: 3 ml Albuterol/Ipratropium (Duoneb) 3 ml NEB Q2H PRN PRN Reason: SOB &/or Wheezing Clonidine (Catapres) 0.1 mg PO Q4H PRN PRN Reason: SBP Greater Than 180 Last Admin: 10/15/18 08:34 Dose: 0.1 mg Dextrose/Water (Dextrose 50%) 25 gm SLOW IVP PRN PRN PRN Reason: Hypoglycemia Diphenhydramine HCl (Benadryl) 25 mg IVP Q3H PRN PRN Reason: Itching Diphenhydramine HCl (Benadryl) 25 mg PO Q3H PRN PRN Reason: Itching Last Admin: 10/13/18 00:46 Dose: 25 mg Diphenhydramine HCl (Benadryl) 25 mg IM Q3H PRN PRN Reason: Itching Duloxetine HCl (Cymbalta) 60 mg PO DAILY [facility] Last Admin: 10/17/18 09:49 Dose: 60 mg Enoxaparin Sodium (Lovenox) 40 mg SC 0900 [facility] Last Admin: 10/17/18 12:16 Dose: 40 mg Glucagon (Glucagon) 1 mg IM PRN PRN PRN Reason: Hypoglycemia Hydralazine HCl (Apresoline) 10 mg SLOW IVP Q4H PRN PRN Reason: SBP Greater Than 180 Hydralazine HCl (Apresoline) 25 mg PO TID PRN PRN Reason: SBP Greater Than 170 Last Admin: 10/15/18 01:39 Dose: 25 mg Dextrose/Water (D5w) 1,000 mls @ 0 mls/hr IV .Q0M PRN PRN Reason: Hypoglycemia Insulin Glargine 20 units/ (Miscellaneous Medication) 0.2 mls @ 0 mls/hr SC QAM [facility] Last Admin: 10/17/18 09:51 Dose: 0.2 mls Cefazolin Sodium/Dextrose 2 gm (/ Device) 50 mls @ 100 mls/hr IVPB Q8HR [facility] Last Admin: 10/17/18 06:14 Dose: 50 mls Insulin Glargine 20 units/ (Miscellaneous Medication) 0.2 mls @ 0 mls/hr SC HS [facility] Last Admin: 10/16/18 21:04 Dose: 0.2 mls Sodium Chloride (Normal Saline 0.9%) 1,000 mls @ 50 mls/hr IV .Q20H [facility] Last Admin: 10/17/18 04:37 Dose: 1,000 mls Fentanyl Citrate 2,000 mcg/ (Sodium Chloride) 100 mls @ 0 mls/hr IV INF PRN PRN Reason: Pain Last Admin: 10/16/18 20:59 Dose: 100 mls Insulin Human Lispro (Humalog) 0 units SC .BEDTIME SLIDING SC PRN PRN Reason: Bedtime Correctional Scale Last Admin: 10/15/18 22:12 Dose: 2 unit Insulin Human Lispro (Humalog) 0 units SC .AGGRESSIVE SLIDING PRN PRN Reason: Aggressive Correctional Scale Last Admin: 10/17/18 06:20 Dose: 6 unit Naloxone HCl (Narcan) 0.2 mg IV Q5MIN PRN PRN Reason: Opiate Reversal Ondansetron HCl (Zofran Odt) 4 mg PO Q6H PRN PRN Reason: Nausea/Vomiting Last Admin: 10/12/18 10:45 Dose: 4 mg Ondansetron HCl (Zofran) 4 mg IVP Q6H PRN PRN Reason: Nausea/Vomiting Polyethylene Glycol (Miralax) 17 gm PO DAILY PRN PRN Reason: Constipation Last Admin: 10/13/18 00:46 Dose: 17 gm Pregabalin (Lyrica) 200 mg PO BID [facility] Last Admin: 10/17/18 09:49 Dose: 200 mg Promethazine HCl (Phenergan) 12.5 mg IM Q4H PRN PRN Reason: Nausea/Vomiting Rifampin (Rifadin) 300 mg PO 1000,2200 [facility] Last Admin: 10/17/18 09:51 Dose: 300 mg Saccharomyces Boulardii (Florastor) 250 mg PO DAILY [facility] Last Admin: 10/17/18 09:51 Dose: 250 mg Senna/Docusate Sodium (Senokot S) 1 tab PO BID [facility] Last Admin: 10/17/18 09:49 Dose: 1 tab Sodium Chloride (Flush - Normal Saline) 10 ml IVF Q12HR [facility] Last Admin: 10/17/18 09:51 Dose: 10 ml Sodium Chloride (Flush - Normal Saline) 10 ml IVF PRN PRN PRN Reason: Saline Flush Tramadol HCl (Ultram) 50 mg PO Q6HR PRN PRN Reason: Mild Pain (1-3) Tramadol HCl (Ultram) 100 mg PO Q6HR PRN PRN Reason: Moderate to Severe Pain (6-10) Last Admin: 10/17/18 04:36 Dose: 100 mg
[2018-10-17 13:38] VITALS: BMI 40.5
[2018-10-17] MEDS: fentaNYL Citrate/PF 2,000 MCG in Sodium Chloride 0.9% 60 ML IV PRN (18:43)
[2018-10-18] MEDS: hydrALAZINE 25 MG TAB PO PRN (00:17)
[2018-10-18] MEDS: HYDROcodone/Acetaminophen 10/325 mg Tablet PO PRN ×4 (04:34→21:28)
[2018-10-18] MEDS: HumaLOG 300 UNITS/3 ML VIAL SC PRN ×3 (06:21→16:28)
[2018-10-18] MEDS: CEFAZOLIN 2 GM in Premix Bag 1 BAG IVPB SCH ×3 (06:22→21:30)
[2018-10-18] MEDS: Saccharomyces boulardii 250 MG CAP PO SCH (08:14)
[2018-10-18] MEDS: Senokot S 8.6-50 MG TAB PO SCH ×2 (08:14→21:30)
[2018-10-18] MEDS: metFORMIN 500 MG TAB PO SCH ×2 (08:14→16:26)
[2018-10-18] MEDS: Pregabalin 50 MG CAP PO SCH ×2 (08:15→21:28)
[2018-10-18] MEDS: Enoxaparin Sodium 40 MG/0.4 ML SYRINGE SC SCH (08:16)
[2018-10-18] MEDS: Insulin Glargine 20 UNITS in Pre-Filled Syringe 1 EACH SC SCH ×2 (08:17→21:26)
[2018-10-18] MEDS: DULoxetine 60 MG CAP PO SCH (08:17)
[2018-10-18] MEDS: Fenofibrate Nanocrystallized 145 MG TAB PO SCH (10:00)
--- NOTE | 2018-10-18 10:41 | PDOC.PN ---
- Subjective Encounter Start Date: 10/18/18 Encounter Start Time: 10:00 Subjective: feels better, took 2 steps with PT yesterday -: eating well, had bm last evening -: no sob - Objective Resuscitation Status - Order Detail: 10/09/18 02:36 Resuscitation Status Routine Resuscitation Status: FULL: Full Resuscitation MAR Reviewed: Yes Vital Signs & Weight: Vital Signs (12 hours) Temp Pulse Pulse Resp BP BP BP 10/18/18 10:38 69 14 10/18/18 09:40 99 166/91 H 10/18/18 08:10 98.5 F 83 18 173/98 H 10/18/18 08:06 10/18/18 07:25 98.5 F 83 18 173/98 H 10/18/18 06:18 71 14 10/18/18 04:45 99.5 F 87 12 170/56 H 10/18/18 00:17 85 183/95 H 10/17/18 23:44 98.5 F 85 16 183/95 H Pulse Ox 10/18/18 10:38 95 10/18/18 09:40 10/18/18 08:10 96 10/18/18 08:06 96 10/18/18 07:25 96 10/18/18 06:18 96 10/18/18 04:45 95 10/18/18 00:17 10/17/18 23:44 94 L Weight Admit Weight 264 lb 3.2 oz Weight 289 lb 8 oz Most Recent Monitor Data Heart Rate from ECG 90 NIBP 142/83 NIBP BP-Mean 102 Respiration from ECG 24 SpO2 97 I&O: 10/17/18 10/18/18 10/19/18 06:59 06:59 06:59 Intake Total 3350 1700 Output Total 5028 3400 Balance -1675 -1700 Result Diagrams: 10/17/18 07:50 10/17/18 07:50 Additional Labs: Accuchecks 10/17/18 10/17/18 10/17/18 19:42 16:27 11:07 POC Glucose 261 H 303 H 227 H Phys Exam - Physical Examination HEENT: PERRLA, moist MMs Neck: no JVD, supple Respiratory: no wheezing, no rales Cardiovascular: RRR, no significant murmur Gastrointestinal: soft, no distention, positive bowel sounds right knee in dressing with drain, edema+ Neurological: non-focal, moves all 4 limbs Psychiatric: normal affect, A&O x 3 Dx/Plan (1) Septic joint of right knee joint Code(s): M00.9 - PYOGENIC ARTHRITIS, UNSPECIFIED Status: Acute Comment: s/p revision of TKA with poly exchange 10/09/18, repeat debridement on 10/16/2018 (2) Osteomyelitis of second toe of left foot Code(s): M86.9 - OSTEOMYELITIS, UNSPECIFIED Status: Acute Comment: s/p amp of mtp joint 2nd toe left 10/09/2018 (3) Obesity Code(s): E66.9 - OBESITY, UNSPECIFIED Status: Chronic Qualifiers: Obesity classification: adult class 3 (BMI >= 40) Body mass index: BMI 40.0 -44.9 (4) INDER (obstructive sleep apnea) Code(s): G47.33 - OBSTRUCTIVE SLEEP APNEA (ADULT) (PEDIATRIC) Status: Chronic (5) Diabetes mellitus type 2 in obese Code(s): E11.69 - TYPE 2 DIABETES MELLITUS WITH OTHER SPECIFIED COMPLICATION; E66.9 - OBESITY, UNSPECIFIED Status: Chronic (6) Hypertension Code(s): I10 - ESSENTIAL (PRIMARY) HYPERTENSION Status: Chronic Qualifiers: Hypertension type: essential hypertension Qualified Code(s): I10 - Essential (primary) hypertension - Plan is on cefazolin and rifampin (ceftriaxone for outpt) -: fentanyl stereo operator, lyrica, ultram/norco prn -: continue lantus, cymbalta and lovenox for dvt prophylaxis -: hemostable -: awaiting placement, he needs to ambulate more with PT * . Review of Systems - Medications/Allergies Allergies/Adverse Reactions: Allergies Allergy/AdvReac Type Severity Reaction Status Date / Time No Known Allergies Allergy Verified 10/09/18 03:51 Medications: Current Medications Acetaminophen (Tylenol) 650 mg PO Q4H PRN PRN Reason: Headache/Fever/Mild Pain (1-3) Last Admin: 10/10/18 21:18 Dose: 650 mg Acetaminophen (Tylenol) 650 mg [place] Q4H PRN PRN Reason: Headache/Fever/Mild Pain (1-3) Hydrocodone Bitart/Acetaminophen ([place] 10/325) 1 tab PO Q4HR PRN PRN Reason: Mild Pain (1-3) Hydrocodone Bitart/Acetaminophen ([place] 10/325) 2 tab PO Q4HR PRN PRN Reason: Moderate to Severe Pain (6-10) Last Admin: 10/18/18 04:34 Dose: 2 tab Albuterol/Ipratropium (Duoneb) 3 ml NEB [id number] [facility] Last Admin: 10/18/18 10:38 Dose: 3 ml Albuterol/Ipratropium (Duoneb) 3 ml NEB Q2H PRN PRN Reason: SOB &/or Wheezing Clonidine (Catapres) 0.1 mg PO Q4H PRN PRN Reason: SBP Greater Than 180 Last Admin: 10/15/18 08:34 Dose: 0.1 mg Dextrose/Water (Dextrose 50%) 25 gm SLOW IVP PRN PRN PRN Reason: Hypoglycemia Diphenhydramine HCl (Benadryl) 25 mg IVP Q3H PRN PRN Reason: Itching Diphenhydramine HCl (Benadryl) 25 mg PO Q3H PRN PRN Reason: Itching Last Admin: 10/13/18 00:46 Dose: 25 mg Diphenhydramine HCl (Benadryl) 25 mg IM Q3H PRN PRN Reason: Itching Duloxetine HCl (Cymbalta) 60 mg PO DAILY [facility] Last Admin: 10/18/18 08:17 Dose: 60 mg Enoxaparin Sodium (Lovenox) 40 mg SC 0900 [facility] Last Admin: 10/18/18 08:16 Dose: 40 mg Fenofibrate (Tricor) 145 mg PO DAILY [facility] Last Admin: 10/18/18 10:00 Dose: 145 mg Glucagon (Glucagon) 1 mg IM PRN PRN PRN Reason: Hypoglycemia Hydralazine HCl (Apresoline) 10 mg SLOW IVP Q4H PRN PRN Reason: SBP Greater Than 180 Hydralazine HCl (Apresoline) 25 mg PO TID PRN PRN Reason: SBP Greater Than 170 Last Admin: 10/18/18 00:17 Dose: 25 mg Dextrose/Water (D5w) 1,000 mls @ 0 mls/hr IV .Q0M PRN PRN Reason: Hypoglycemia Insulin Glargine 20 units/ (Miscellaneous Medication) 0.2 mls @ 0 mls/hr SC QAM [facility] Last Admin: 10/18/18 08:17 Dose: 0.2 mls Cefazolin Sodium/Dextrose 2 gm (/ Device) 50 mls @ 100 mls/hr IVPB Q8HR [facility] Last Admin: 10/18/18 06:22 Dose: 50 mls Insulin Glargine 20 units/ (Miscellaneous Medication) 0.2 mls @ 0 mls/hr SC HS [facility] Last Admin: 10/17/18 21:32 Dose: 0.2 mls Sodium Chloride (Normal Saline 0.9%) 1,000 mls @ 50 mls/hr IV .Q20H [facility] Last Admin: 10/17/18 04:37 Dose: 1,000 mls Fentanyl Citrate 2,000 mcg/ (Sodium Chloride) 100 mls @ 0 mls/hr IV INF PRN PRN Reason: Pain Last Admin: 10/17/18 18:43 Dose: 100 mls Insulin Human Lispro (Humalog) 0 units SC .BEDTIME SLIDING SC PRN PRN Reason: Bedtime Correctional Scale Last Admin: 10/17/18 21:32 Dose: 3 unit Insulin Human Lispro (Humalog) 0 units SC .AGGRESSIVE SLIDING PRN PRN Reason: Aggressive Correctional Scale Last Admin: 10/18/18 06:21 Dose: 3 unit Metformin HCl (Glucophage) 1,000 mg PO BID[facility] Last Admin: 10/18/18 08:14 Dose: 1,000 mg Naloxone HCl (Narcan) 0.2 mg IV Q5MIN PRN PRN Reason: Opiate Reversal Ondansetron HCl (Zofran Odt) 4 mg PO Q6H PRN PRN Reason: Nausea/Vomiting Last Admin: 10/12/18 10:45 Dose: 4 mg Ondansetron HCl (Zofran) 4 mg IVP Q6H PRN PRN Reason: Nausea/Vomiting Polyethylene Glycol (Miralax) 17 gm PO DAILY PRN PRN Reason: Constipation Last Admin: 10/13/18 00:46 Dose: 17 gm Pregabalin (Lyrica) 200 mg PO BID [facility] Last Admin: 10/18/18 08:15 Dose: 200 mg Promethazine HCl (Phenergan) 12.5 mg IM Q4H PRN PRN Reason: Nausea/Vomiting Rifampin (Rifadin) 300 mg PO 1000,2200 [facility] Last Admin: 10/17/18 21:28 Dose: 300 mg Saccharomyces Boulardii (Florastor) 250 mg PO DAILY [facility] Last Admin: 10/18/18 08:14 Dose: 250 mg Senna/Docusate Sodium (Senokot S) 1 tab PO BID [facility] Last Admin: 10/18/18 08:14 Dose: 1 tab Sodium Chloride (Flush - Normal Saline) 10 ml IVF Q12HR [facility] Last Admin: 10/18/18 10:05 Dose: Not Given Sodium Chloride (Flush - Normal Saline) 10 ml IVF PRN PRN PRN Reason: Saline Flush Tramadol HCl (Ultram) 50 mg PO Q6HR PRN PRN Reason: Mild Pain (1-3) Tramadol HCl (Ultram) 100 mg PO Q6HR PRN PRN Reason: Moderate to Severe Pain (6-10) Last Admin: 10/17/18 04:36 Dose: 100 mg
[2018-10-18] MEDS: Rifampin 300 MG CAP PO SCH ×2 (11:37→21:29)
[2018-10-18] MEDS: Sodium Chloride 0.9% 1,000 ML IV SCH (11:38)
[2018-10-18] MEDS: fentaNYL Citrate/PF 2,000 MCG in Sodium Chloride 0.9% 60 ML IV PRN (21:25)
[2018-10-18] MEDS: diphenhydrAMINE 25 MG CAP PO PRN (21:28)
[2018-10-19] MEDS: cloNIDine 0.1 MG TAB PO PRN (04:20)
[2018-10-19] MEDS: HYDROcodone/Acetaminophen 10/325 mg Tablet PO PRN ×2 (04:21→11:27)
[2018-10-19 04:41] LABS: #Basophils 0.1 thou/uL (0.0-0.2); #Eosinphils 0.3 thou/uL (0.0-0.7); #Lymphocytes 2.3 thou/uL (1.20-3.40); #Monocytes 1.1 thou/uL (0.11-0.59); #Neutrophils 9.5 thou/uL (1.40-6.50); %Basophils 0.7 % (0.0-1.0); %Eosinophils 2.3 % (0.0-10.0); %Lymphocytes 17.4 % (21.0-51.0); %Monocytes 8.3 % (0.0-10.0); %Neutrophils 71.3 % (42.0-75.0); Hemoglobin 8.4 g/dL (14.0-18.0); Mean Corpuscular HGB CONC 33.4 g/dL (32.0-36.0); Mean Corpuscular Hemoglobin 29.5 pg (27.0-31.0); Mean Corpuscular Volume 88.4 fL (78.0-98.0); Platelet Count 673 thou/uL (130-400); RBC Distribution Width 12.7 % (11.5-14.5); Red Blood Cell (RBC) Count 2.85 mill/uL (4.70-6.10); White Blood Cell (WBC) Count 13.4 thou/uL (4.8-10.8)
[2018-10-19] MEDS: CEFAZOLIN 2 GM in Premix Bag 1 BAG IVPB SCH (05:51)
[2018-10-19] MEDS: Sodium Chloride 0.9% 1,000 ML IV SCH (06:31)
[2018-10-19 11:28] VITALS: BP 154/98; TEMP 98.9
[2018-10-19] MEDS: Insulin Glargine 20 UNITS in Pre-Filled Syringe 1 EACH SC SCH (11:29)
[2018-10-19] MEDS: Senokot S 8.6-50 MG TAB PO SCH (11:33)
[2018-10-19] MEDS: Enoxaparin Sodium 40 MG/0.4 ML SYRINGE SC SCH (11:33)
[2018-10-19] MEDS: Pregabalin 50 MG CAP PO SCH (11:34)
[2018-10-19] MEDS: Saccharomyces boulardii 250 MG CAP PO SCH (11:34)
[2018-10-19] MEDS: DULoxetine 60 MG CAP PO SCH (11:34)
[2018-10-19] MEDS: Fenofibrate Nanocrystallized 145 MG TAB PO SCH (11:34)
[2018-10-19] MEDS: metFORMIN 500 MG TAB PO SCH (11:36)
[2018-10-19] MEDS ORDERED: cefTRIAXone\\ROCEPHIN 2 GM in Sodium Chloride 0.9% 100 ML IVPB SCH (12:00)
[2018-10-19] MEDS: Rifampin 300 MG CAP PO SCH (12:51)
[2018-10-19] MEDS ORDERED: traMADol HCl 50 MG TAB PO SCH (13:15)
[2018-10-19] MEDS ORDERED: Ibuprofen 800 MG TAB PO SCH (13:15)
[2018-10-19] MEDS ORDERED: Acetaminophen/Codeine 30-300mg Tablet PO PRN ×2 (13:36)
[2018-10-19] MEDS ORDERED: traMADol HCl 50 MG TAB PO PRN ×2 (14:02)
[2018-10-19] MEDS ORDERED: Aspirin 81 mg Enteric Coated Tablet PO SCH (21:00)
--- NOTE | 2018-10-22 11:17 | DIS ---
DATE OF ADMISSION: 10/09/2018 DATE OF DISCHARGE: 10/19/2018 PREOPERATIVE DIAGNOSES: 1. Infected right total knee arthroscopy. 2. Diabetic infection, left second toe. POSTOPERATIVE DIAGNOSES: 1. Infected right total knee arthroscopy. 2. Diabetic infection, left second toe. PROCEDURES PERFORMED: 1. Revision of right total knee arthroplasty with poly exchange. 2. Irrigation and debridement of right total knee arthroplasty. 3. Amputation of left second toe at metatarsophalangeal joint. The patient did fairly well with this other than the struggling with pain. The second procedure was performed by Dr. Delaney. PREOPERATIVE DIAGNOSIS: Right septic knee. POSTOPERATIVE DIAGNOSIS: Right septic knee. OPERATION: Irrigation and debridement of right knee. HOSPITAL STAY: The patient has struggled with quite a bit of pain throughout his stay. He was treated with a EDUCATIONAL ADVISOR fentanyl and then switched over before left to hydrocodone. He was also sent with Tylenol No.4 if he did not react well with the hydrocodone for breakthrough pain. He did work mildly with physical therapy, but was in too much pain to do this very much. He also saw our hospital staff. He worked with Dr. Massey for infection. He did receive a PICC line while he is in the hospital for long-term antibiotics. For the most part, he did well throughout his hospital stay other than dealing with the pain. DISCHARGE CONDITION: Stable. DISPOSITION: retirement facility. FOLLOWUP: Would be in 10 to 14 days or sooner if there are problems and/or concerns. DISCHARGE MEDICATIONS: Given with usage instructions. Job ID: [id number]
== END 2018-10-19 14:10 | DRG 853 ==
LOC: ERS 00:34 → 2NO 02:34 → IMCU/EMU 06:52 → SURG A 10-11 20:47
PROVIDERS: ADMIT Orthopaedic Surgery; ATTEND Orthopaedic Surgery
PROC: 0SPC09Z Removal of Liner from Right Knee Joint, Open Approach (ICD-10-PCS; 2018-10-09)
PROC: 0SUV09Z Supplement Right Knee Joint, Tibial Surface with Liner, Open Approach (ICD-10-PCS; 2018-10-09)
PROC: 0Y6S0Z0 Detachment at Left 2nd Toe, Complete, Open Approach (ICD-10-PCS; 2018-10-09)
PROC: 0SBC0ZZ Excision of Right Knee Joint, Open Approach (ICD-10-PCS; 2018-10-09)
PROC: 0S9C00Z Drainage of Right Knee Joint with Drainage Device, Open Approach (ICD-10-PCS; 2018-10-09)
PROC: 02HV33Z Insertion of Infusion Device into Superior Vena Cava, Percutaneous Approach (ICD-10-PCS; 2018-10-15)
PROC: B5181ZA Fluoroscopy of Superior Vena Cava using Low Osmolar Contrast, Guidance (ICD-10-PCS; 2018-10-15)
PROC: 0S9C00Z Drainage of Right Knee Joint with Drainage Device, Open Approach (ICD-10-PCS; principal; 2018-10-16)
PROC: 0SBC0ZZ Excision of Right Knee Joint, Open Approach (ICD-10-PCS; 2018-10-16)
DX: A41.9 Sepsis, unspecified organism (principal); J96.01 Acute respiratory failure with hypoxia; Z68.41 Body mass index [BMI] 40.0-44.9, adult; M86.8X7 Other osteomyelitis, ankle and foot; J44.1 Chronic obstructive pulmonary disease with (acute) exacerbation; E87.1 Hypo-osmolality and hyponatremia; T84.53XA Infection and inflammatory reaction due to internal right knee prosthesis, initial encounter; M00.9 Pyogenic arthritis, unspecified; N17.9 Acute kidney failure, unspecified; E11.621 Type 2 diabetes mellitus with foot ulcer; L97.529 Non-pressure chronic ulcer of other part of left foot with unspecified severity; E11.65 Type 2 diabetes mellitus with hyperglycemia; Z96.653 Presence of artificial knee joint, bilateral; E78.00 Pure hypercholesterolemia, unspecified; E66.9 Obesity, unspecified; M25.461 Effusion, right knee; E11.69 Type 2 diabetes mellitus with other specified complication; E87.6 Hypokalemia; G47.33 Obstructive sleep apnea (adult) (pediatric); E11.22 Type 2 diabetes mellitus with diabetic chronic kidney disease; I12.9 Hypertensive chronic kidney disease with stage 1 through stage 4 chronic kidney disease, or unspecified chronic kidney disease; N18.3 Chronic kidney disease, stage 3 (moderate); F32.9 Major depressive disorder, single episode, unspecified; E11.40 Type 2 diabetes mellitus with diabetic neuropathy, unspecified; G89.4 Chronic pain syndrome; E11.51 Type 2 diabetes mellitus with diabetic peripheral angiopathy without gangrene
CPT/HCPCS: 36415; 36416; 36569; 71275; 80048; 80053; 80202; 82010; 82805; 83036; 83605; 83735; 85025; 85060; 85652; 86140; 87040; 87070; 87077; 87186; 87205; 89051; 93005; 94640; 94660; 96361; 96365; C1751; J0360; J0690; J0696; J1650; J1815; J1825; J2001; J2270; J2405; J2543; J2704; J2930; J3010; J3370; J3480; J3490; J7050; J7620; J7626; Q0162; Q0163; Q9966

== ENCOUNTER 2019-02-07 13:22 | Outpatient (CLI) | payer OTHER ==
--- NOTE | 2019-02-07 16:07 | RAD ---
EXAM: LEFT FOOT THREE VIEWS: 02/07/19 HISTORY: Osteomyelitis. COMPARISON: 10/09/18. FINDINGS: Status post amputation of the second toe at the level of the metatarsophalangeal joint. There is soft tissue swelling with extensive bony destructive changes of the distal phalanx of the third toe, assu berenice there has not been extensive acute trauma to this toe, these findings are certainly evidence for acute osteomyelitis. Generalized degenerative changes of the foot. IMPRESSION: Evidence for extensive destructive osteomyelitis distal phalanx of the third toe with soft tissue swe lling. Amputation changes of the second toe. POS: [facility]
--- NOTE | 2019-02-07 21:30 | HP ---
HISTORY OF PRESENT ILLNESS: Mr. Dominic Saez is a very pleasant 58-year-old gentleman, who presents to the wound center for evaluation of an ulceration of the plantar surface of the left third toe. The patient was referred to the wound center by JOAN Rodriguez on 01/22/2019. The patient presents to clinic with the ulceration open to air. The patient has no complaints today. He denies any fever or chills. PAST MEDICAL HISTORY: 1. Hypertension. 2. Osteoarthritis. 3. History of diabetes mellitus. 4. Chronic obstructive pulmonary disease. PAST SURGICAL HISTORY: 1. Lung resection for decortication. 2. Back surgery x2. 3. Bilateral knee replacement. 4. Revision of right total knee arthroplasty/amputation of left second toe at MTP joint on 10/09/2018. 5. Irrigation and debridement of right knee on 10/16/2018. MEDICATIONS: 1. Metformin. 2. Olmesartan. 3. Hydrochlorothiazide. 4. Triamterene-hydrochlorothiazide. 5. Two different p.o. antibiotics. ALLERGIES: NO KNOWN DIAGNOSED ALLERGIES. SOCIAL HISTORY: Significant for the social use of tobacco in the past. The patient states that he presently dips snuff. The patient admits to the "mild" consumption of alcohol in the past. He states that he has not consumed any alcohol in 20 years. FAMILY HISTORY: Negative for diabetes mellitus or coronary artery disease. PHYSICAL EXAMINATION: VITAL SIGNS: Temperature 98, pulse 71, respirations 18, and blood pressure 128/76. Accu-Chek 130. GENERAL: A 58-year-old gentleman, sitting on stretcher in examination room, in no acute distress. HEENT: Normocephalic and atraumatic. NECK: No nuchal rigidity. CHEST: Clear to auscultation. CV: Regular rate and rhythm. ABDOMEN: Soft. EXTREMITIES: An ulceration of the plantar surface of the left third toe is present, which measures approximately 0.5 x 1.0 cm. The ulceration is covered in its entirety by dry stable eschar. No serous or purulent drainage is associated with the wound. No erythema of the skin surrounding the wound is present. No maceration of the skin of the periwound is noted. A dorsalis pedis pulse is easily palpable on the left. Significant edema of the left third toe is noted on today's exam. NEUROLOGIC: Grossly nonfocal. ASSESSMENT AND PLAN: 1. Ulceration of plantar surface of left third toe as described above. The left third toe, however, is markedly edematous. Plain films of the left foot will be obtained today to look for findings suggestive of osteomyelitis. The patient is to continue p.o. antibiotics as previously prescribed by Dr. Flores. I have explained to the patient that further imaging may be necessary if the plain films show no evidence for osteomyelitis. The patient understands and is in agreement with the preceding treatment plan. I will see Mr. Saez again after all imaging of the left foot including the left third toe is complete. 2. Hypertension. 3. Osteoarthritis. 4. History of diabetes mellitus. 5. Chronic obstructive pulmonary disease. Job ID: [id number]
== END 2019-02-07 13:23 | disposition home or self-care (01) ==
LOC: WCC 13:22 → RAD 13:23
PROVIDERS: ATTEND Family Medicine
DX: E10.621 Type 1 diabetes mellitus with foot ulcer (principal); E10.69 Type 1 diabetes mellitus with other specified complication; M86.9 Osteomyelitis, unspecified; Z89.422 Acquired absence of other left toe(s)

== ENCOUNTER 2019-02-18 10:47 | Day surgery (SDC) | payer OTHER ==
[2019-02-18] MEDS ORDERED: Fentanyl 100 MCG/2 ML VIAL ONE ×2 (11:55)
[2019-02-18] MEDS ORDERED: Bupivacaine PF 0.5% 30 ML VIAL ONE (12:10)
[2019-02-18] MEDS ORDERED: Ondansetron PF 4 MG/2 ML Vial ONE (12:41)
[2019-02-18] MEDS ORDERED: Lidocaine 1% PF 5 ML VIAL ONE (12:41)
[2019-02-18] MEDS ORDERED: PROPOFOL 200 MG/20 ML VIAL ONE (12:41)
[2019-02-18] MEDS ORDERED: PHENYLEPHRINE-NS 100 MCG/ML 10 ML SYRINGE ONE (12:41)
--- NOTE | 2019-02-18 15:20 | OP ---
DATE OF PROCEDURE: 02/18/2019 OPERATION PERFORMED: Left 3rd and 4th toe amputation. PREOPERATIVE DIAGNOSIS: Osteomyelitis of left 3rd and 4th toes. POSTOPERATIVE DIAGNOSIS: Osteomyelitis of left 3rd and 4th toes. COMPLICATIONS: None. ESTIMATED BLOOD LOSS: Minimal. ANESTHESIA: General. IMPLANTS: None. INDICATIONS: Mr. Saez is a 58-year-old male, who is a diabetic. He has osteomyelitis of his left 3rd and 4th toes. He has had previous 2nd toe amputation for similar problem. He has been indicated for amputation to hopefully eradicate infection and prevent further complications. Risks have been reviewed in detail. DESCRIPTION OF PROCEDURE: Mr. Saez was identified in the preoperative holding area. His correct extremity was marked. He was carried to the operating room. He was positioned supine. General anesthesia was induced. A multidisciplinary time-out was performed. The left lower extremity was prepped and draped in sterile fashion. We began the procedure with performing a fishmouth incision over the base of the 3rd toe. We dissected down to the bony level. The tendons were transected. We worked back to the MTP joint. At this point, the MTP joint ligaments and capsule was incised. This allowed amputation of the 3rd toe at the MTP joint. We then thoroughly irrigated with copious lavage. We then loosely closed this with Vicryl suture and nylon suture. We moved to the 4th toe. We performed a similar incision, dissected down to the bony level. We worked down to the proximal phalanx. At this toe, the proximal phalanx was transected at its mid shaft. Again, we thoroughly irrigated with copious lavage. We obtained hemostasis. We then loosely closed the amputation with nylon and Vicryl suture. A sterile dressing was applied. There was a small callus on the base of the foot on the plantar aspect. We trimmed this callus and identified a small piece of glass. This was removed. We cleansed this wound and applied a dressing. The patient was taken to the recovery room in good condition. Job ID: [id number]
== END 2019-02-18 14:25 | disposition home or self-care (01) ==
LOC: SDC 10:47
PROVIDERS: ATTEND Orthopaedic Surgery
PROC: 0Y6W0Z0 Detachment at Left 4th Toe, Complete, Open Approach (ICD-10-PCS; principal; 2019-02-18)
PROC: 0Y6U0Z0 Detachment at Left 3rd Toe, Complete, Open Approach (ICD-10-PCS; principal; 2019-02-18)
DX: E11.69 Type 2 diabetes mellitus with other specified complication (principal); M86.8X7 Other osteomyelitis, ankle and foot; E11.40 Type 2 diabetes mellitus with diabetic neuropathy, unspecified; I12.9 Hypertensive chronic kidney disease with stage 1 through stage 4 chronic kidney disease, or unspecified chronic kidney disease; E11.22 Type 2 diabetes mellitus with diabetic chronic kidney disease; N18.9 Chronic kidney disease, unspecified; G47.30 Sleep apnea, unspecified; E78.5 Hyperlipidemia, unspecified; F17.290 Nicotine dependence, other tobacco product, uncomplicated; Z79.2 Long term (current) use of antibiotics; Z79.84 Long term (current) use of oral hypoglycemic drugs; Z79.899 Other long term (current) drug therapy; Z89.422 Acquired absence of other left toe(s)
CPT/HCPCS: J0690; J2001; J2405; J2704; J3010; S0020

== ENCOUNTER 2019-10-03 18:35 | Emergency (ER) | payer OTHER ==
[2019-10-03 20:12] LABS: #Basophils 0.1 thou/uL (0.0-0.2); #Eosinphils 0.6 thou/uL (0.0-0.7); #Monocytes 0.7 thou/uL (0.11-0.59); %Basophils 0.9 % (0.0-1.0); %Eosinophils 4.8 % (0.0-10.0); %Lymphocytes 22.5 % (21.0-51.0); %Monocytes 5.3 % (0.0-10.0); %Neutrophils 66.5 % (42.0-75.0); Hemoglobin 15.4 g/dL (14.0-18.0); Mean Corpuscular HGB CONC 32.7 g/dL (32.0-36.0); Mean Corpuscular Hemoglobin 28.4 pg (27.0-31.0); Mean Corpuscular Volume 86.8 fL (78.0-98.0); Mean Platelet Volume 7.4 fL (7.4-10.4); Platelet Count 426 thou/uL (130-400); RBC Distribution Width 12.6 % (11.5-14.5); Red Blood Cell (RBC) Count 5.42 mill/uL (4.70-6.10); White Blood Cell (WBC) Count 13.5 thou/uL (4.8-10.8)
--- NOTE | 2019-10-03 20:32 | RAD ---
Exam: Chest one view HISTORY:Chest pain Comparison: 10/29/2014 FINDINGS: Cardiac silhouette:Mild cardiomegaly Aorta: Unremarkable Pulmonary vessels: Normal Costophrenic angles: Clear LUNGS: No masses or consolidation. Pneumothorax: None Osseous abnormalities: None IMPRESSION: Mild cardiomegaly. No evidence of congestive heart failure
[2019-10-03 20:34] LABS: Clarity Clear (Clear)
[2019-10-03 20:35] LABS: Bilirubin Negative (Negative); Blood, Urine Negative (Negative); Glucose, Urine (Dipstick) Negative (Negative); Leukocyte Negative Leu/uL (Negative); Nitrite Negative (Negative); Protein, Urine (Dipstick) Negative (Neg-Trace); Urobilinogen 0.2 mg/dL (Less than 2)
[2019-10-03 20:47] LABS: ALT (SGPT) 28 U/L (8-55); AST (SGOT) 41 U/L (5-34); Albumin 4.4 g/dL (3.4-4.8); Alkaline Phosphatase 85 U/L (40-110); Anion Gap 17 mmol/L (10-20); BUN (Urea Nitrogen) 17 mg/dL (8.4-25.7); Bilirubin, Total 0.3 mg/dL (0.2-1.2); CK (CPK) 124 U/L (30-200); Calc. Creatinine Clearance 0 mL/min (70-130); Calcium 9.8 mg/dL (7.8-10.44); Carbon Dioxide 25 mmol/L (23-31); Chloride 98 mmol/L (98-107); Estimated GFR-MDRD 79; Globulin 3.6 g/dL (2.4-3.5); Glucose 118 mg/dL (80-115); Lipase 88 U/L (8-78); Potassium 4.3 mmol/L (3.5-5.1); Sodium 136 mmol/L (136-145)
== END 2019-10-03 22:13 | disposition home or self-care (01) ==
LOC: ERS 18:35
DX: B34.9 Viral infection, unspecified (principal); E86.0 Dehydration; I10 Essential (primary) hypertension; J44.9 Chronic obstructive pulmonary disease, unspecified; E78.00 Pure hypercholesterolemia, unspecified; F17.220 Nicotine dependence, chewing tobacco, uncomplicated; Z79.899 Other long term (current) drug therapy
CPT/HCPCS: 71045; 80053; 81003; 82550; 83690; 84484; 85025; 93005; 96360

== ENCOUNTER 2020-10-27 10:43 | Outpatient (CLI) | payer BC, OTHER | END 2020-10-27 10:44 | disposition home or self-care (01) | LOC: RAD-FRANK 10:43 | PROVIDERS: ATTEND Nurse Practitioner Family | DX: M54.9 Dorsalgia, unspecified (principal); R06.02 Shortness of breath; M47.816 Spondylosis without myelopathy or radiculopathy, lumbar region; Z98.890 Other specified postprocedural states | CPT/HCPCS: 71046; 72100 ==

== ENCOUNTER 2021-02-03 15:34 | Outpatient (CLI) | payer BC, OTHER | END 2021-02-03 15:35 | disposition home or self-care (01) | LOC: BICRAD 15:34 | PROVIDERS: ATTEND Internal Medicine Pulmonary Disease | DX: J44.9 Chronic obstructive pulmonary disease, unspecified (principal) | CPT/HCPCS: 71046 ==

== ENCOUNTER 2021-03-29 14:19 | Outpatient (CLI) | payer BC, OTHER | END 2021-03-29 14:20 | disposition home or self-care (01) | LOC: BICRAD 14:19 | PROVIDERS: ATTEND Nurse Practitioner Family | DX: M47.816 Spondylosis without myelopathy or radiculopathy, lumbar region (principal) | CPT/HCPCS: 72110 ==

== ENCOUNTER 2022-03-24 15:40 | Inpatient (IN) | payer OTHER ==
[2022-03-24] MEDS: Morphine 4 MG/ML VIAL SLOW IVP PRN ×2 (18:17→23:04)
[2022-03-24] MEDS ORDERED: Dextrose 5% in Water 1,000 ML IV PRN (18:45)
[2022-03-24] MEDS ORDERED: Dextrose 50% Abboject 50 ML SYRINGE SLOW IVP PRN (18:45)
[2022-03-24] MEDS ORDERED: Insulin Regular 300 UNITS/3 ML VIAL SC PRN (18:45)
[2022-03-24] MEDS ORDERED: Calcium Carbonate 500 MG ChewTAB PO PRN (18:49)
[2022-03-24] MEDS ORDERED: Senokot S 8.6-50 MG TAB PO PRN (18:49)
[2022-03-24] MEDS ORDERED: Electrolyte Replacement Protocol 1 EACH FS SCH (19:00)
[2022-03-24] MEDS ORDERED: Lactated Ringer's 1,000 ML IV SCH (19:00)
[2022-03-24 20:03] VITALS: BMI 42.5
[2022-03-24] MEDS: Heparin 5,000 UNITS/ML VIAL SC SCH (20:16)
[2022-03-24] MEDS: Famotidine 20 MG TAB PO SCH (20:18)
[2022-03-24] MEDS: DULoxetine 60 MG CAP PO SCH (20:18)
[2022-03-24] MEDS ORDERED: Vancomycin 1.5 GRAM/300 ML BAG 1.5 GM in Premix Bag 1 BAG IVPB SCH (20:30)
[2022-03-24] MEDS: Lactated Ringer's 1,000 ML IV SCH (20:57)
[2022-03-24] MEDS: Cefepime 2 GM in Sodium Chloride 0.9% 100 ML IVPB SCH (20:58)
[2022-03-24] MEDS: metroNIDAZOLE 500 MG in Premix Bag 1 BAG IVPB SCH (20:58)
[2022-03-25] MEDS: Morphine 4 MG/ML VIAL SLOW IVP PRN ×5 (02:02→21:12)
[2022-03-25] MEDS: Acetaminophen 500 MG TAB PO PRN ×3 (02:59→20:21)
[2022-03-25] MEDS: metroNIDAZOLE 500 MG in Premix Bag 1 BAG IVPB SCH ×3 (05:13→21:14)
[2022-03-25 06:10] LABS: #Basophils 0.1 thou/uL (0.0-0.2); #Eosinphils 0.2 thou/uL (0.0-0.7); #Lymphocytes 1.3 thou/uL (1.20-3.40); #Neutrophils 12.7 thou/uL (1.40-6.50); %Basophils 0.3 % (0.0-1.0); %Eosinophils 1.1 % (0.0-10.0); %Lymphocytes 8.8 % (21.0-51.0); %Monocytes 6.5 % (0.0-10.0); %Neutrophils 83.3 % (42.0-75.0); Hemoglobin 9.2 g/dL (14.0-18.0); Mean Corpuscular Volume 77.3 fl (78.0-98.0); Mean Platelet Volume 7.2 fL (7.4-10.4); Platelet Count 450 10x3/uL (130-400); RBC Distribution Width 13.8 % (11.5-14.5); Red Blood Cell (RBC) Count 3.85 mill/uL (4.70-6.10); White Blood Cell (WBC) Count 15.2 10x3/uL (4.8-10.8)
[2022-03-25 06:34] LABS: ALT (SGPT) 11 U/L (8-55); AST (SGOT) 15 U/L (5-34); Albumin 3.2 g/dL (3.4-4.8); Alkaline Phosphatase 134 U/L (40-110); Anion Gap 14 mmol/L (10-20); BUN (Urea Nitrogen) 13 mg/dL (8.4-25.7); Bilirubin, Total 0.7 mg/dL (0.2-1.2); Calc. Creatinine Clearance 180 mL/min (70-130); Carbon Dioxide 21 mmol/L (23-31); Chloride 99 mmol/L (98-107); Estimated GFR 99; Glucose 164 mg/dL (80-115); Magnesium 1.6 mg/dL (1.6-2.6); Potassium 3.6 mmol/L (3.5-5.1); Protein, Total 7.2 g/dL (5.8-8.1); Sodium 130 mmol/L (136-145)
[2022-03-25] MEDS: Mometasone 200 MCG/Formoterol 5 MCG 120 PUFF INHALER INH SCH ×2 (07:07→18:52)
[2022-03-25] MEDS ORDERED: Magnesium 2 GM/50 ML(in water) 2 GM in Premix Bag 1 BAG IVPB SCH (08:00)
[2022-03-25] MEDS ORDERED: Non-Formulary Item 1 EACH (Fluticasone/Umeclidin/Vilanter [Trelegy Ellipta 200-62.5-25] 1 INH SCH (09:00)
[2022-03-25] MEDS ORDERED: Non-Formulary Item 1 EACH (Fentanyl [Fentanyl] 1 EACH Patch.Td72) TD SCH (09:00)
[2022-03-25] MEDS ORDERED: Losartan 25 MG TAB PO SCH ×2 (09:00→13:45)
[2022-03-25] MEDS ORDERED: Hydrochlorothiazide 25 MG TAB PO SCH ×2 (09:00→13:45)
[2022-03-25] MEDS ORDERED: Non-Formulary Item 1 EACH (Ipratropium/Albuterol Sulfate [Combivent Respimat] 120 PUFF In INH SCH (09:00)
[2022-03-25] MEDS: Saccharomyces boulardii 250 MG CAP PO SCH (09:39)
[2022-03-25] MEDS: Bupropion 150 MG SR TAB PO SCH (09:39)
[2022-03-25] MEDS: Fenofibrate Nanocrystallized 145 MG TAB PO SCH (09:39)
[2022-03-25] MEDS: Famotidine 20 MG TAB PO SCH ×2 (09:40→20:22)
[2022-03-25] MEDS: DULoxetine 60 MG CAP PO SCH ×3 (09:40→20:23)
[2022-03-25] MEDS: Cefepime 2 GM in Sodium Chloride 0.9% 100 ML IVPB SCH ×2 (09:40→20:23)
[2022-03-25] MEDS: Donepezil HCl 10 MG TAB PO SCH (09:40)
[2022-03-25] MEDS: Heparin 5,000 UNITS/ML VIAL SC SCH ×3 (09:41→20:22)
[2022-03-25] MEDS: rOPINIRole HCl 1 MG TAB PO SCH (10:48)
[2022-03-25] MEDS: Triamterene/Hydrochlorothiazide 37.5 mg/25 mg Tablet PO SCH (10:48)
[2022-03-25] MEDS: VANCOMYCIN 2 GRAM/500 ML BAG 2 GM in Premix Bag 1 BAG IVPB SCH ×2 (12:00→23:52)
[2022-03-25] MEDS: Lactated Ringer's 1,000 ML IV SCH (19:19)
[2022-03-25] MEDS: Pregabalin 50 MG CAP PO SCH (20:22)
[2022-03-25] MEDS: traZODone HCl 50 MG TAB PO SCH (20:22)
[2022-03-26] MEDS: Morphine 4 MG/ML VIAL SLOW IVP PRN ×3 (04:16→20:38)
[2022-03-26] MEDS: metroNIDAZOLE 500 MG in Premix Bag 1 BAG IVPB SCH ×3 (05:12→22:16)
[2022-03-26] MEDS: Mometasone 200 MCG/Formoterol 5 MCG 120 PUFF INHALER INH SCH ×2 (06:21→19:28)
[2022-03-26] MEDS: Insulin Regular 300 UNITS/3 ML VIAL SC PRN ×3 (06:23→17:43)
[2022-03-26 06:38] LABS: #Eosinphils 0.2 thou/uL (0.0-0.7); #Lymphocytes 1.2 thou/uL (1.20-3.40); #Monocytes 1.2 thou/uL (0.11-0.59); #Neutrophils 9.5 thou/uL (1.40-6.50); %Basophils 0.3 % (0.0-1.0); %Eosinophils 1.8 % (0.0-10.0); %Lymphocytes 9.8 % (21.0-51.0); %Monocytes 9.9 % (0.0-10.0); %Neutrophils 78.2 % (42.0-75.0); Hemoglobin 8.8 g/dL (14.0-18.0); Mean Corpuscular HGB CONC 30.3 g/dL (32.0-36.0); Mean Corpuscular Hemoglobin 23.5 pg (27.0-31.0); Mean Corpuscular Volume 77.5 fl (78.0-98.0); Mean Platelet Volume 6.8 fL (7.4-10.4); Platelet Count 472 10x3/uL (130-400); RBC Distribution Width 13.6 % (11.5-14.5); Red Blood Cell (RBC) Count 3.76 mill/uL (4.70-6.10); White Blood Cell (WBC) Count 12.2 10x3/uL (4.8-10.8)
[2022-03-26] MEDS ORDERED: Senokot S 8.6-50 MG TAB PO PRN (06:45)
[2022-03-26 07:01] LABS: Anion Gap 14 mmol/L (10-20); BUN (Urea Nitrogen) 14 mg/dL (8.4-25.7); CRP (Inflammatory) 24.91 mg/dL (= or < 0.5); Calc. Creatinine Clearance 187 mL/min (70-130); Calcium 9.6 mg/dL (7.8-10.44); Carbon Dioxide 23 mmol/L (23-31); Chloride 97 mmol/L (98-107); Estimated GFR 100; Glucose 195 mg/dL (80-115); Potassium 3.3 mmol/L (3.5-5.1); Sodium 131 mmol/L (136-145)
[2022-03-26] MEDS ORDERED: Potassium Chloride 20 MEQ TAB PO SCH ×2 (08:00→13:00)
[2022-03-26] MEDS: Pregabalin 50 MG CAP PO SCH ×2 (08:12→20:40)
[2022-03-26] MEDS: Bupropion 150 MG SR TAB PO SCH (08:13)
[2022-03-26] MEDS: Triamterene/Hydrochlorothiazide 37.5 mg/25 mg Tablet PO SCH (08:13)
[2022-03-26] MEDS: Heparin 5,000 UNITS/ML VIAL SC SCH ×3 (08:13→20:40)
[2022-03-26] MEDS: DULoxetine 60 MG CAP PO SCH ×2 (08:13→20:40)
[2022-03-26] MEDS: Famotidine 20 MG TAB PO SCH ×2 (08:13→20:40)
[2022-03-26] MEDS: Losartan 25 MG TAB PO SCH (08:13)
[2022-03-26] MEDS: Donepezil HCl 10 MG TAB PO SCH (08:13)
[2022-03-26] MEDS: Saccharomyces boulardii 250 MG CAP PO SCH (08:13)
[2022-03-26] MEDS: Hydrochlorothiazide 25 MG TAB PO SCH (08:14)
[2022-03-26] MEDS: Fenofibrate Nanocrystallized 145 MG TAB PO SCH (08:14)
[2022-03-26] MEDS: Cefepime 2 GM in Sodium Chloride 0.9% 100 ML IVPB SCH ×2 (08:14→20:41)
[2022-03-26] MEDS: rOPINIRole HCl 1 MG TAB PO SCH (08:14)
[2022-03-26 10:29] LABS: Vancomycin, Trough 13.6 ug/mL
[2022-03-26] MEDS: VANCOMYCIN 2 GRAM/500 ML BAG 2 GM in Premix Bag 1 BAG IVPB SCH ×2 (11:21→23:37)
[2022-03-26] MEDS: Lactated Ringer's 1,000 ML IV SCH (11:29)
[2022-03-26 14:35] LABS: Potassium 3.8 mmol/L (3.5-5.1)
[2022-03-26] MEDS: traZODone HCl 50 MG TAB PO SCH (20:40)
[2022-03-26] MEDS: Acetaminophen 500 MG TAB PO PRN (22:21)
[2022-03-26] MEDS: guaiFENesin ER 600 MG TAB PO SCH (23:53)
[2022-03-27] MEDS: metroNIDAZOLE 500 MG in Premix Bag 1 BAG IVPB SCH (04:55)
[2022-03-27] MEDS: Morphine 4 MG/ML VIAL SLOW IVP PRN ×3 (05:59→20:29)
[2022-03-27] MEDS: Mometasone 200 MCG/Formoterol 5 MCG 120 PUFF INHALER INH SCH ×2 (06:48→19:23)
[2022-03-27] MEDS: Heparin 5,000 UNITS/ML VIAL SC SCH ×4 (08:06→20:30)
[2022-03-27] MEDS ORDERED: guaiFENesin ER 600 MG TAB PO SCH (09:00)
[2022-03-27] MEDS: Cefepime 2 GM in Sodium Chloride 0.9% 100 ML IVPB SCH ×2 (09:29→20:23)
[2022-03-27] MEDS: Bupropion 150 MG SR TAB PO SCH (09:30)
[2022-03-27] MEDS: Losartan 25 MG TAB PO SCH (09:31)
[2022-03-27] MEDS: Hydrochlorothiazide 25 MG TAB PO SCH (09:31)
[2022-03-27] MEDS: rOPINIRole HCl 1 MG TAB PO SCH (09:31)
[2022-03-27] MEDS: DULoxetine 60 MG CAP PO SCH ×3 (09:31→20:29)
[2022-03-27] MEDS: Pregabalin 50 MG CAP PO SCH ×3 (09:31→20:27)
[2022-03-27] MEDS: Fenofibrate Nanocrystallized 145 MG TAB PO SCH (09:31)
[2022-03-27] MEDS: Donepezil HCl 10 MG TAB PO SCH (09:31)
[2022-03-27] MEDS: Saccharomyces boulardii 250 MG CAP PO SCH (09:31)
[2022-03-27] MEDS: Famotidine 20 MG TAB PO SCH ×3 (09:31→20:29)
[2022-03-27] MEDS: Triamterene/Hydrochlorothiazide 37.5 mg/25 mg Tablet PO SCH (09:32)
[2022-03-27] MEDS: ALBUTEROL SULFATE 90 MCG INH SCH (10:06)
[2022-03-27 11:18] LABS: #Eosinphils 0.4 thou/uL (0.0-0.7); #Lymphocytes 1.3 thou/uL (1.20-3.40); #Monocytes 1.1 thou/uL (0.11-0.59); #Neutrophils 7.1 thou/uL (1.40-6.50); %Basophils 0.3 % (0.0-1.0); %Eosinophils 3.6 % (0.0-10.0); %Lymphocytes 13.3 % (21.0-51.0); %Monocytes 11.3 % (0.0-10.0); %Neutrophils 71.5 % (42.0-75.0); Hemoglobin 9.9 g/dL (14.0-18.0); Mean Corpuscular HGB CONC 30.2 g/dL (32.0-36.0); Mean Corpuscular Hemoglobin 23.5 pg (27.0-31.0); Mean Corpuscular Volume 77.8 fl (78.0-98.0); Mean Platelet Volume 6.8 fL (7.4-10.4); Platelet Count 518 10x3/uL (130-400); RBC Distribution Width 13.8 % (11.5-14.5); White Blood Cell (WBC) Count 9.9 10x3/uL (4.8-10.8)
[2022-03-27] MEDS: VANCOMYCIN 2 GRAM/500 ML BAG 2 GM in Premix Bag 1 BAG IVPB SCH ×2 (11:23→22:57)
[2022-03-27] MEDS: guaiFENesin ER 600 MG TAB PO SCH (11:25)
[2022-03-27 11:36] LABS: Anion Gap 14 mmol/L (10-20); BUN (Urea Nitrogen) 14 mg/dL (8.4-25.7); Calc. Creatinine Clearance 197 mL/min (70-130); Calcium 9.8 mg/dL (7.8-10.44); Carbon Dioxide 24 mmol/L (23-31); Chloride 99 mmol/L (98-107); Estimated GFR 101; Glucose 198 mg/dL (80-115); Potassium 3.9 mmol/L (3.5-5.1); Sodium 133 mmol/L (136-145)
[2022-03-27] MEDS ORDERED: Vancomycin (BATCH) 1.5 GRAM/300 ML BAG ONE (14:53)
[2022-03-27] MEDS: traZODone HCl 50 MG TAB PO SCH ×2 (19:26→20:28)
[2022-03-27] MEDS: Acetaminophen 500 MG TAB PO PRN (22:02)
[2022-03-27 22:23] LABS: Vancomycin, Trough 15.4 ug/mL
[2022-03-28] MEDS: Morphine 4 MG/ML VIAL SLOW IVP PRN (01:40)
[2022-03-28] MEDS: Mometasone 200 MCG/Formoterol 5 MCG 120 PUFF INHALER INH SCH ×2 (07:02→18:46)
[2022-03-28] MEDS ORDERED: Promethazine HCl 25 MG/ML VIAL IM PRN ×2 (07:06→09:40)
[2022-03-28] MEDS ORDERED: Ondansetron HCl/PF 4 MG/2 ML Vial IVP PRN (07:06)
[2022-03-28] MEDS ORDERED: Promethazine HCl 25 MG/ML VIAL IVPB PRN (07:06)
[2022-03-28] MEDS ORDERED: fentaNYL PF 100 MCG/2 ML SYRINGE ONE ×2 (07:50→08:21)
[2022-03-28] MEDS ORDERED: PROPOFOL 200 MG/20 ML VIAL ONE (07:50)
[2022-03-28] MEDS ORDERED: PHENYLEPHRINE-NS 100 MCG/ML 10 ML SYRINGE ONE ×2 (07:50→09:24)
[2022-03-28] MEDS ORDERED: ePHEDrine 50 MG/ML VIAL ONE (07:50)
[2022-03-28] MEDS ORDERED: Ondansetron PF 4 MG/2 ML Vial ONE (07:50)
[2022-03-28] MEDS ORDERED: FENTANYL 50 MCG/ML 1 ML VIAL ONE ×2 (09:37→09:47)
[2022-03-28] MEDS ORDERED: diphenhydrAMINE 50 MG/ML VIAL IM PRN (09:40)
[2022-03-28] MEDS ORDERED: diphenhydrAMINE 50 MG/ML VIAL IVP PRN (09:40)
[2022-03-28] MEDS ORDERED: FENTANYL 500 MCG/10 ML VIAL 2,000 MCG in Sodium Chloride 0.9% 60 ML IV PRN (09:40)
[2022-03-28] MEDS ORDERED: diphenhydrAMINE 25 MG CAP PO PRN (09:40)
[2022-03-28] MEDS ORDERED: Naloxone HCl 0.4 mg/ml Vial IV PRN (09:40)
[2022-03-28] MEDS ORDERED: Ondansetron PF 4 MG/2 ML Vial IVP PRN (09:40)
[2022-03-28] MEDS ORDERED: Zolpidem Tartrate 5 MG TAB PO PRN (09:40)
[2022-03-28] MEDS ORDERED: Communication Order-Pharmacy FS SCH (09:45)
[2022-03-28] MEDS ORDERED: Ketorolac Tromethamine 30 MG/ML VIAL IVP SCH (10:00)
[2022-03-28] MEDS ORDERED: Ropivacaine 0.5% HCl/PF (150 MG/30 ML VIAL) ONE (10:54)
[2022-03-28] MEDS: Cefepime 2 GM in Sodium Chloride 0.9% 100 ML IVPB SCH ×2 (11:28→20:02)
[2022-03-28] MEDS: Heparin 5,000 UNITS/ML VIAL SC SCH ×3 (11:29→20:02)
[2022-03-28] MEDS: Famotidine 20 MG TAB PO SCH ×2 (11:31→20:03)
[2022-03-28] MEDS: Pregabalin 50 MG CAP PO SCH ×2 (11:32→20:02)
[2022-03-28] MEDS: DULoxetine 60 MG CAP PO SCH ×2 (11:32→20:03)
[2022-03-28] MEDS: VANCOMYCIN 2 GRAM/500 ML BAG 2 GM in Premix Bag 1 BAG IVPB SCH ×2 (12:44→23:25)
[2022-03-28] MEDS: Sodium Chloride 0.9% 1,000 ML IV SCH (12:45)
[2022-03-28] MEDS: Hydrochlorothiazide 25 MG TAB PO SCH (12:54)
[2022-03-28] MEDS: Triamterene/Hydrochlorothiazide 37.5 mg/25 mg Tablet PO SCH (12:55)
[2022-03-28] MEDS: Fenofibrate Nanocrystallized 145 MG TAB PO SCH (12:55)
[2022-03-28] MEDS: Donepezil HCl 10 MG TAB PO SCH (12:55)
[2022-03-28] MEDS: Saccharomyces boulardii 250 MG CAP PO SCH (12:55)
[2022-03-28] MEDS: Bupropion 150 MG SR TAB PO SCH (12:55)
[2022-03-28] MEDS: rOPINIRole HCl 1 MG TAB PO SCH (12:55)
[2022-03-28] MEDS: Losartan 25 MG TAB PO SCH (12:55)
[2022-03-28] MEDS: Insulin Regular 300 UNITS/3 ML VIAL SC PRN ×2 (13:27→16:57)
[2022-03-28 13:37] LABS: #Eosinphils 0.3 thou/uL (0.0-0.7); #Lymphocytes 1.5 thou/uL (1.20-3.40); #Monocytes 0.8 thou/uL (0.11-0.59); #Neutrophils 6.9 thou/uL (1.40-6.50); %Basophils 0.3 % (0.0-1.0); %Lymphocytes 15.4 % (21.0-51.0); %Monocytes 8.8 % (0.0-10.0); %Neutrophils 72.6 % (42.0-75.0); Hemoglobin 9.4 g/dL (14.0-18.0); Mean Corpuscular HGB CONC 30.5 g/dL (32.0-36.0); Mean Corpuscular Volume 78.8 fl (78.0-98.0); Mean Platelet Volume 6.9 fL (7.4-10.4); Platelet Count 519 10x3/uL (130-400); RBC Distribution Width 14.4 % (11.5-14.5); White Blood Cell (WBC) Count 9.5 10x3/uL (4.8-10.8)
[2022-03-28 14:15] LABS: Anion Gap 12 mmol/L (10-20); BUN (Urea Nitrogen) 16 mg/dL (8.4-25.7); Calc. Creatinine Clearance 161 mL/min (70-130); Calcium 9.3 mg/dL (7.8-10.44); Carbon Dioxide 26 mmol/L (23-31); Chloride 100 mmol/L (98-107); Estimated GFR 93; Glucose 301 mg/dL (80-115); Potassium 4.4 mmol/L (3.5-5.1); Sodium 134 mmol/L (136-145)
[2022-03-28] MEDS: Gabapentin 300 MG CAP PO SCH ×2 (15:27→20:03)
[2022-03-28 16:26] LABS: #Basophils 0.1 thou/uL (0.0-0.2); #Eosinphils 0.4 thou/uL (0.0-0.7); #Monocytes 1.1 thou/uL (0.11-0.59); #Neutrophils 8.5 thou/uL (1.40-6.50); %Basophils 0.5 % (0.0-1.0); %Eosinophils 3.1 % (0.0-10.0); %Lymphocytes 16.8 % (21.0-51.0); %Monocytes 8.8 % (0.0-10.0); %Neutrophils 70.8 % (42.0-75.0); Hemoglobin 9.5 g/dL (14.0-18.0); Mean Corpuscular HGB CONC 31.7 g/dL (32.0-36.0); Mean Corpuscular Hemoglobin 25.4 pg (27.0-31.0); Mean Platelet Volume 6.9 fL (7.4-10.4); Platelet Count 506 10x3/uL (130-400); RBC Distribution Width 14.2 % (11.5-14.5); Red Blood Cell (RBC) Count 3.75 mill/uL (4.70-6.10)
[2022-03-28] MEDS: Ketorolac Tromethamine 30 MG/ML VIAL IVP SCH ×2 (18:05→23:25)
[2022-03-28] MEDS: traZODone HCl 50 MG TAB PO SCH (20:03)
[2022-03-29] MEDS: Insulin Regular 300 UNITS/3 ML VIAL SC PRN ×2 (05:17→11:32)
[2022-03-29] MEDS: Ketorolac Tromethamine 30 MG/ML VIAL IVP SCH ×5 (05:17→23:00)
[2022-03-29 06:27] LABS: #Eosinphils 0.7 thou/uL (0.0-0.7); #Lymphocytes 1.5 thou/uL (1.20-3.40); #Monocytes 1.2 thou/uL (0.11-0.59); #Neutrophils 9.8 thou/uL (1.40-6.50); %Basophils 0.3 % (0.0-1.0); %Eosinophils 5.2 % (0.0-10.0); %Lymphocytes 11.7 % (21.0-51.0); %Monocytes 8.8 % (0.0-10.0); %Neutrophils 74.1 % (42.0-75.0); Hemoglobin 9.3 g/dL (14.0-18.0); Mean Corpuscular HGB CONC 30.8 g/dL (32.0-36.0); Mean Corpuscular Hemoglobin 24.7 pg (27.0-31.0); Mean Corpuscular Volume 80.1 fl (78.0-98.0); Mean Platelet Volume 6.7 fL (7.4-10.4); Platelet Count 538 10x3/uL (130-400); RBC Distribution Width 14.2 % (11.5-14.5); Red Blood Cell (RBC) Count 3.78 mill/uL (4.70-6.10); White Blood Cell (WBC) Count 13.2 10x3/uL (4.8-10.8)
[2022-03-29] MEDS: ALBUTEROL SULFATE 90 MCG INH SCH (06:59)
[2022-03-29] MEDS: Mometasone 200 MCG/Formoterol 5 MCG 120 PUFF INHALER INH SCH ×2 (07:16→18:57)
[2022-03-29 08:08] LABS: Anion Gap 12 mmol/L (10-20); BUN (Urea Nitrogen) 19 mg/dL (8.4-25.7); Calc. Creatinine Clearance 187 mL/min (70-130); Calcium 9.6 mg/dL (7.8-10.44); Carbon Dioxide 24 mmol/L (23-31); Chloride 100 mmol/L (98-107); Estimated GFR 100; Glucose 193 mg/dL (80-115); Potassium 4.1 mmol/L (3.5-5.1); Sodium 132 mmol/L (136-145)
[2022-03-29] MEDS: Hydrochlorothiazide 25 MG TAB PO SCH (08:29)
[2022-03-29] MEDS: Losartan 25 MG TAB PO SCH (08:29)
[2022-03-29] MEDS: Triamterene/Hydrochlorothiazide 37.5 mg/25 mg Tablet PO SCH (08:29)
[2022-03-29] MEDS: Famotidine 20 MG TAB PO SCH ×2 (08:29→21:05)
[2022-03-29] MEDS: Saccharomyces boulardii 250 MG CAP PO SCH (08:29)
[2022-03-29] MEDS: Fenofibrate Nanocrystallized 145 MG TAB PO SCH (08:30)
[2022-03-29] MEDS: Pregabalin 50 MG CAP PO SCH ×2 (08:30→21:05)
[2022-03-29] MEDS: Gabapentin 300 MG CAP PO SCH ×3 (08:30→21:04)
[2022-03-29] MEDS: Bupropion 150 MG SR TAB PO SCH (08:30)
[2022-03-29] MEDS: Donepezil HCl 10 MG TAB PO SCH (08:30)
[2022-03-29] MEDS: rOPINIRole HCl 1 MG TAB PO SCH (08:30)
[2022-03-29] MEDS: Heparin 5,000 UNITS/ML VIAL SC SCH ×3 (08:31→21:05)
[2022-03-29] MEDS: DULoxetine 60 MG CAP PO SCH ×2 (08:31→21:04)
[2022-03-29] MEDS: Cefepime 2 GM in Sodium Chloride 0.9% 100 ML IVPB SCH ×2 (08:31→21:02)
[2022-03-29] MEDS: Sodium Chloride 0.9% 1,000 ML IV SCH (08:32)
[2022-03-29] MEDS ORDERED: Cefepime 2 GM VIAL ONE (08:35)
[2022-03-29] MEDS ORDERED: Magnevist 469MG/ML 20 ML VIAL ONE (09:03)
[2022-03-29 10:39] LABS: Vancomycin, Trough 20.8 ug/mL
[2022-03-29] MEDS: VANCOMYCIN 2 GRAM/500 ML BAG 2 GM in Premix Bag 1 BAG IVPB SCH ×2 (12:03→22:59)
[2022-03-29] MEDS: traZODone HCl 50 MG TAB PO SCH (21:05)
[2022-03-30] MEDS: Ketorolac Tromethamine 30 MG/ML VIAL IVP SCH ×2 (05:23→13:36)
[2022-03-30] MEDS: Insulin Regular 300 UNITS/3 ML VIAL SC PRN (05:27)
[2022-03-30] MEDS: Mometasone 200 MCG/Formoterol 5 MCG 120 PUFF INHALER INH SCH (06:58)
[2022-03-30 07:09] LABS: #Eosinphils 0.8 thou/uL (0.0-0.7); #Neutrophils 8.7 thou/uL (1.40-6.50); %Basophils 0.4 % (0.0-1.0); %Eosinophils 6.4 % (0.0-10.0); %Monocytes 7.7 % (0.0-10.0); %Neutrophils 69.6 % (42.0-75.0); Mean Corpuscular HGB CONC 31.1 g/dL (32.0-36.0); Mean Corpuscular Hemoglobin 24.8 pg (27.0-31.0); Mean Corpuscular Volume 79.6 fl (78.0-98.0); Mean Platelet Volume 6.7 fL (7.4-10.4); Platelet Count 569 10x3/uL (130-400); RBC Distribution Width 14.4 % (11.5-14.5); Red Blood Cell (RBC) Count 3.62 mill/uL (4.70-6.10); White Blood Cell (WBC) Count 12.5 10x3/uL (4.8-10.8)
[2022-03-30 07:32] LABS: Anion Gap 12 mmol/L (10-20); BUN (Urea Nitrogen) 18 mg/dL (8.4-25.7); Calc. Creatinine Clearance 195 mL/min (70-130); Calcium 9.5 mg/dL (7.8-10.44); Carbon Dioxide 24 mmol/L (23-31); Chloride 101 mmol/L (98-107); Estimated GFR 101; Glucose 155 mg/dL (80-115); Potassium 4.4 mmol/L (3.5-5.1); Sodium 133 mmol/L (136-145)
[2022-03-30 08:18] VITALS: BP 173/90; TEMP 97.6
[2022-03-30] MEDS: DULoxetine 60 MG CAP PO SCH (08:58)
[2022-03-30] MEDS: Bupropion 150 MG SR TAB PO SCH (08:58)
[2022-03-30] MEDS: Donepezil HCl 10 MG TAB PO SCH (08:58)
[2022-03-30] MEDS: Heparin 5,000 UNITS/ML VIAL SC SCH (08:59)
[2022-03-30] MEDS: Fenofibrate Nanocrystallized 145 MG TAB PO SCH (08:59)
[2022-03-30] MEDS: Hydrochlorothiazide 25 MG TAB PO SCH (08:59)
[2022-03-30] MEDS: Famotidine 20 MG TAB PO SCH (08:59)
[2022-03-30] MEDS: Gabapentin 300 MG CAP PO SCH (08:59)
[2022-03-30] MEDS: Saccharomyces boulardii 250 MG CAP PO SCH (09:01)
[2022-03-30] MEDS: Triamterene/Hydrochlorothiazide 37.5 mg/25 mg Tablet PO SCH (09:01)
[2022-03-30] MEDS: Pregabalin 50 MG CAP PO SCH (09:01)
[2022-03-30] MEDS: Losartan 25 MG TAB PO SCH (09:01)
[2022-03-30] MEDS: rOPINIRole HCl 1 MG TAB PO SCH (09:01)
[2022-03-30] MEDS: Sodium Chloride 0.9% 1,000 ML IV SCH (09:02)
[2022-03-30] MEDS ORDERED: HYDROcodone/Acetaminophen 10/325 mg Tablet PO PRN ×2 (09:58→10:07)
[2022-03-30] MEDS ORDERED: traMADol HCl 50 MG TAB PO PRN (10:10)
[2022-03-30] MEDS ORDERED: FENTANYL 50 MCG/ML 1 ML VIAL SLOW IVP PRN (10:10)
[2022-03-31] MEDS ORDERED: Polyethylene Glycol 3350 17 GM Packet PO SCH (09:00)
== END 2022-03-30 14:27 | DRG 854 ==
LOC: T4-A 17:40
PROVIDERS: ADMIT Internal Medicine; ATTEND Internal Medicine
PROC: 3E03329 Introduction of Other Anti-infective into Peripheral Vein, Percutaneous Approach (ICD-10-PCS; 2022-03-24)
PROC: 0Y6J0Z1 Detachment at Left Lower Leg, High, Open Approach (ICD-10-PCS; principal; 2022-03-28)
PROC: 0HBMXZZ Excision of Right Foot Skin, External Approach (ICD-10-PCS; 2022-03-28)
PROC: 30233N1 Transfusion of Nonautologous Red Blood Cells into Peripheral Vein, Percutaneous Approach (ICD-10-PCS; 2022-03-28)
DX: A41.9 Sepsis, unspecified organism (principal); Z20.822 Contact with and (suspected) exposure to COVID-19; E87.1 Hypo-osmolality and hyponatremia; L03.116 Cellulitis of left lower limb; M86.8X7 Other osteomyelitis, ankle and foot; Z68.41 Body mass index [BMI] 40.0-44.9, adult; Z16.11 Resistance to penicillins; Z16.29 Resistance to other single specified antibiotic; E11.69 Type 2 diabetes mellitus with other specified complication; E11.621 Type 2 diabetes mellitus with foot ulcer; L97.519 Non-pressure chronic ulcer of other part of right foot with unspecified severity; G47.33 Obstructive sleep apnea (adult) (pediatric); I10 Essential (primary) hypertension; F17.290 Nicotine dependence, other tobacco product, uncomplicated; F17.210 Nicotine dependence, cigarettes, uncomplicated; E78.5 Hyperlipidemia, unspecified; E88.81 Metabolic syndrome and other insulin resistance; Z96.651 Presence of right artificial knee joint; E66.01 Morbid (severe) obesity due to excess calories; E87.6 Hypokalemia; E11.40 Type 2 diabetes mellitus with diabetic neuropathy, unspecified; B95.61 Methicillin susceptible Staphylococcus aureus infection as the cause of diseases classified elsewhere; B95.2 Enterococcus as the cause of diseases classified elsewhere; Z79.899 Other long term (current) drug therapy; Z79.51 Long term (current) use of inhaled steroids; Z99.89 Dependence on other enabling machines and devices; Z98.890 Other specified postprocedural states; Z83.3 Family history of diabetes mellitus; Z71.6 Tobacco abuse counseling
CPT/HCPCS: 36415; 36416; 36430; 80048; 80053; 80202; 83735; 85025; 85652; 86140; 86850; 86900; 86901; 87070; 87077; 87186; 87205; 88307; 93005; 93010; 94640; 94664; 97139; A9579; J0692; J1644; J1815; J1885; J2270; J2405; J2704; J2795; J3010; J3370; J3475; J3490; J7050; J7120; J7620; P9016; U0003; U0005